=== PATIENT | male | born 1960 | race Caucasian/White ===

== ENCOUNTER 2020-12-10 07:12 | Day surgery (SDC) | payer OTHER, SELFPAY ==
--- NOTE | 2020-12-04 13:02 | HO.ANESPROP2 ---
Documented by User: Lexie Willson 12/04/20 13:06 HPI - Anesthesia Eval Consult details Narrative: 60yo M for Colonoscopy Eliquis for Afib PMFSH Past Medical History Medical History (Updated 12/10/20 @ 08:41 by Susy Santos) Arrhythmia Coagulopathy Diabetes Elevated cholesterol GERD (gastroesophageal reflux disease) HTN (hypertension) Sleep apnea Surgical History Surgical History H/O colonoscopy History of esophagogastroduodenoscopy (EGD) History of hemilaminectomy Hx of elbow surgery Hx of excision of mass Hx of hernia repair Hx of nasal septoplasty Hx of neck surgery Hx of shoulder surgery Hx of tonsillectomy Social History Social History Smoking Status: Never smoker Use of substances other than those prescribed or required for medical reasons: No Are you DNR?: No Advance Directives: No Advance Directives Information Provided: Yes Meds Allergies Allergy/AdvReac Type Severity Reaction Status Date / Time ENVIRONMENTAL Allergy Intermediate RUNNY NOSE Uncoded 04/10/20 14:49 Home Medications Medication Instructions Recorded Confirmed Last Taken Type apixaban [Eliquis] 1 tab PO BID 12/04/20 12/04/20 Unknown History flecainide 1 tab PO Q12H 12/04/20 12/04/20 Unknown History ipratropium bromide 1 spray INTRANASAL BID 12/04/20 12/04/20 Unknown History lisinopril 1 tab PO DAILY 12/04/20 12/04/20 Unknown History losartan 1 tab PO DAILY 12/04/20 12/04/20 Unknown History metformin 1 tab PO BID 12/04/20 12/04/20 Unknown History simvastatin 1 tab PO BEDTIME 12/04/20 12/04/20 Unknown History Exam Exam Date and Time: December 04, 2020 1302 Height,Weight and Vital Signs: Height 6 ft 1 in Narrative Narrative: EKG 05/2020: SR @85 with 1st degree AV block Assessment and Plan Assessment Anesthesia Assessment: Chart Reviewed Documented by User: Susy Santos 12/10/20 08:41 [facility] Past Medical History Medical History (Updated 12/10/20 @ 08:41 by Susy Santos) Arrhythmia Coagulopathy Diabetes Elevated cholesterol GERD (gastroesophageal reflux disease) HTN (hypertension) Sleep apnea Family History Family history of problems with anesthesia: No Surgical History Surgical History H/O colonoscopy History of esophagogastroduodenoscopy (EGD) History of hemilaminectomy Hx of elbow surgery Hx of excision of mass Hx of hernia repair Hx of nasal septoplasty Hx of neck surgery Hx of shoulder surgery Hx of tonsillectomy History of Problems with Anesthesia: No Social History Social History Smoking Status: Never smoker Use of substances other than those prescribed or required for medical reasons: No Are you DNR?: No Advance Directives: No Advance Directives Information Provided: Yes Meds Allergies Allergy/AdvReac Type Severity Reaction Status Date / Time ENVIRONMENTAL Allergy Intermediate RUNNY NOSE Uncoded 04/10/20 14:49 Home Medications Medication Instructions Recorded Confirmed Last Taken Type apixaban [Eliquis] 1 tab PO BID 12/04/20 12/04/20 Unknown History flecainide 1 tab PO Q12H 12/04/20 12/04/20 Unknown History ipratropium bromide 1 spray INTRANASAL BID 12/04/20 12/04/20 Unknown History lisinopril 1 tab PO DAILY 12/04/20 12/04/20 Unknown History losartan 1 tab PO DAILY 12/04/20 12/04/20 Unknown History metformin 1 tab PO BID 12/04/20 12/04/20 Unknown History simvastatin 1 tab PO BEDTIME 12/04/20 12/04/20 Unknown History Exam Height,Weight and Vital Signs: Vital Signs Temp Pulse Resp BP 12/10/20 08:04 97.2 F 82 16 150/88 H Pertinent Lab Results Pertinent Lab Results: Lab Results 12/10/20 Range/Units 07:34 POC Glucose 164 H (60-115) mg/dL Airway Mallampati Class: II TM Dist: >3cm Neck ROM: Full Heart: RRR Lungs: CTAB Assessment and Plan Assessment Anesthesia Assessment: Anesthesia Plan Discussed and Chart Reviewed Final Anesthetic Review NPO: Yes ASA Class: III Final Preanesthetic Review: No Changes in Pt Med Stat, Meds/Allgs Chart Reviewed, Consent Obtained/Reviewed and Anes Risks/Benef Reviewed Patient Risk: Intermediate Procedure Risk: Low Assessment/Block/Sedation in SS: Assess/Block/Sedation-SS Anesthetic Plan Anesthetic Plan: MAC: Disposition: Standard PACU
[2020-12-10 07:37] LABS: Glucose, Whole Blood 164 mg/dL (60-115)
[2020-12-10] MEDS: Sodium Phosphate,Mono-Dibasic 133 ML ENEMA PR (08:00)
[2020-12-10 08:04] VITALS: BP 150/88; PULSE 82; RESP 16; TEMP 36.2; BMI 25.0
[2020-12-10] MEDS: Lactated Ringers 1,000 ML 100 ML IVCONT (08:20)
[2020-12-10 09:15] VITALS: BP 116/72; PULSE 79; RESP 12; TEMP 36.9; O2SAT 99
--- NOTE | 2020-12-10 09:18 | PM.OP ---
Brief Operative Note Date of Service: 12/10/20 Pre-op diagnosis: Screening Post-op diagnosis: other (Diverticulosis) Procedure: Colonoscopy to cecum Surgeon: Kain Lopez Anesthesia: MAC Was an Drawing Kiln Supervisor used for this Procedure?: No Estimated blood loss (mL): 0 Pathology: none sent Condition: stable Disposition: PACU
[2020-12-10 09:30] VITALS: BP 119/78; PULSE 75; RESP 16; TEMP 36.9; O2SAT 100
--- NOTE | 2020-12-10 09:38 | OP_ITS ---
SURGEON: Kain Lopez MD INDICATIONS: The patient presents for evaluation of colorectal cancer screening and personal history of tubular adenoma of the colon. Full consent has been obtained from him for this, including risks of bleeding and perforation. PREOPERATIVE DIAGNOSIS: POSTOPERATIVE DIAGNOSIS: PROCEDURE PERFORMED: Colonoscopy to the cecum. ESTIMATED BLOOD LOSS: COMPLICATIONS: ANESTHESIA: Monitored anesthesia care. ASSISTANTS: SPECIMENS: PREOPERATIVE DIAGNOSES: Colorectal cancer screening and personal history of tubular adenoma of the colon. POSTOPERATIVE DIAGNOSES: Colorectal cancer screening and personal history of tubular adenoma of the colon, sigmoid diverticulosis, and internal hemorrhoids. DESCRIPTION OF PROCEDURE: The patient was placed in the left lateral decubitus position. The digital rectal exam revealed no abnormalities. The Olympus video pediatric colonoscope was entered into the rectum and advanced to the cecum with the assistance of abdominal wall pressure. Once in the cecum, I did visualize normal-appearing cecal pouch with appendiceal orifice and a normal-appearing ileocecal valve. The entire cecum and ileocecal valve appeared normal. There was transillumination of light deep in the right lower quadrant. The scope was slowly withdrawn assessing all mucosal surfaces carefully. Preparation was excellent. I did not visualize any sign of polyps, colitis, nor angiodysplasia. There was a mild amount of sigmoid diverticulosis. In the rectum, scope was retroflexed visualizing internal hemorrhoids, but no other pathology. The rectal mucosa appeared normal. The scope was straightened out and withdrawn from the patient. He tolerated the procedure well and was returned to the recovery area in stable condition. IMPRESSION: 1. Diverticulosis. 2. Internal hemorrhoids. PLAN: I would recommend a repeat colonoscopy in 5 years for further screening. He will otherwise see me on a p.r.n. basis. He was advised to resume his Eliquis today. MD SUPA Powers/AMELIAL / [id number]
== END 2020-12-10 10:26 | disposition home or self-care (01) ==
PROVIDERS: PCP Hospitalist; Visit Provider Internal Medicine
PROC: 0DJD8ZZ Inspection of Lower Intestinal Tract, Via Natural or Artificial Opening Endoscopic (ICD-10-PCS; CPT 45378; principal; 2020-12-10 08:20)
DX: Z12.11 Encounter for screening for malignant neoplasm of colon (principal); Z86.010 Personal history of colon polyps; K57.30 Diverticulosis of large intestine without perforation or abscess without bleeding; K64.8 Other hemorrhoids; I48.92 Unspecified atrial flutter; Z79.01 Long term (current) use of anticoagulants; D68.51 Activated protein C resistance; I10 Essential (primary) hypertension; E11.9 Type 2 diabetes mellitus without complications; G47.33 Obstructive sleep apnea (adult) (pediatric); Z79.84 Long term (current) use of oral hypoglycemic drugs; Z79.899 Other long term (current) drug therapy
CPT/HCPCS: 45378; 82947

== ENCOUNTER 2021-06-25 12:10 | Outpatient (REF) | payer OTHER, SELFPAY ==
--- NOTE | ~2021-06-25 | XR_ITS ---
EXAMINATION: XR SHOULDER, LEFT CLINICAL INFORMATION: Pain COMPARISON: None TECHNIQUE: Three views of the left shoulder. FINDINGS: The bones and soft tissues are normal. No fracture. Glenohumeral and acromioclavicular alignment is anatomic with normal joint space. No abnormal soft tissue calcifications. XR/XR shoulder LT min 2V IMPRESSION: Normal left shoulder.
== END 2021-06-25 12:11 | disposition home or self-care (01) ==
LOC: HO.HOSX 12:10
PROVIDERS: Visit Provider Orthopaedic Surgery
DX: R29.898 Other symptoms and signs involving the musculoskeletal system (principal); M25.512 Pain in left shoulder
CPT/HCPCS: 73030

== ENCOUNTER 2021-07-10 17:50 | Outpatient (REF) | payer OTHER, SELFPAY ==
--- NOTE | ~2021-07-10 | MR_ITS ---
EXAMINATION: MR CERVICAL SPINE WITHOUT CONTRAST CLINICAL INFORMATION: 61-year-old with left shoulder pain radiating to the left arm. COMPARISON: None TECHNIQUE: MRI of the cervical spine was obtained using routine sequences without contrast. FINDINGS: Alignment: The cervical spine is anatomically aligned. No spondylolisthesis or retrolisthesis. Craniocervical Junction/C1-C2 Articulations: Intact and aligned. Visualized Intracranial Structures: Within normal limits. Vertebral Bodies: Normal height. Disc Spaces and Endplates: Rdvv-cl-vqqunnsl disc space height loss is seen throughout the cervical spine between C2-C3 and C7-T1 inclusive, with mild degrees of anterior marginal spondylosis. There is partial ankylosis of the C4-C5 intervertebral disc space. Bone Marrow: No significant marrow-replacing process or bone marrow edema. SPINAL LEVELS: C2-C3: Rtdpdkx-uh-xxsvp paramedian disc osteophyte complex noted with mild flattening of the dural sac asymmetric to the right without cord impingement. There is uncovertebral spurring and facet arthropathy, left more than right, with moderate left-sided neural foraminal stenosis. No canal stenosis. C3-C4: Posterior disc osteophyte complex asymmetric to the right with flattening of the dural sac without cord impingement or significant canal stenosis. Bilateral uncovertebral spurring and facet arthropathy noted with vgwajhux-zp-psjvdt bilateral neural foraminal stenosis, right more than left. C4-C5: Posterior osteophytic ridging asymmetric to the right noted with mild flattening of the dural sac without canal stenosis or cord impingement. Uncovertebral spurring noted bilaterally and mild facet arthrosis with a small left-sided facet joint effusion, with npky-pa-zfrzjhop right and mild left-sided neural foraminal stenosis. C5-C6: Posterior disc osteophyte complex noted with flattening of the dural sac without cord impingement or significant canal stenosis. Uncovertebral spurring and facet arthropathy noted with qctj-bf-zuvcwqeq left and cpetrbtr-up-czacrk right-sided neural foraminal stenosis. C6-C7: Posterolateral disc osteophyte complex bilaterally with bilateral uncovertebral spurring. Moderate flattening of the dural sac asymmetric to the right with mild spinal canal stenosis without cord impingement. Mild facet arthropathy noted with severe bilateral neural foraminal stenosis. C7-T1: Small central disc protrusion noted with mild flattening of the central dural sac without cord impingement. Ligamentum flavum thickening noted without significant central spinal canal stenosis. There is uncovertebral spurring bilaterally and facet arthropathy predominantly on the right with mild right-sided neural foraminal stenosis. T1-T2: There is a bnsmjya-ku-xltiu paramedian disc herniation with flattening of the dural sac asymmetric to the right without cord compression. No significant spinal canal stenosis. No significant neural foraminal stenosis. The cervical and visualized upper thoracic spinal cord is normal in signal intensity throughout, without focal lesion, edema or syrinx. MR/MR cervical spine wo con IMPRESSION: 1. Multilevel cervical DDD and spondylosis with multilevel DJD throughout the cervical spine as described above. 2. Multilevel posterior disc osteophyte complexes with mild spinal canal stenosis at C6-C7. No cord compression. 3. Multilevel DJD with multilevel bilateral bony neural foraminal stenosis as described by level above. 4. Dkcmycl-rl-yhwmx paramedian disc herniation at T1-T2 without cord compression.
== END 2021-07-10 17:51 | disposition home or self-care (01) ==
LOC: HO.MRI 17:50
PROVIDERS: PCP Hospitalist; Visit Provider Orthopaedic Surgery
DX: R29.898 Other symptoms and signs involving the musculoskeletal system (principal)
CPT/HCPCS: 72141

== ENCOUNTER 2021-12-22 12:27 | Outpatient (REF) | payer OTHER, SELFPAY ==
--- NOTE | ~2021-12-22 | XR_ITS ---
EXAMINATION: XR CHEST CLINICAL INFORMATION: Cough. COMPARISON: None TECHNIQUE: 2 views of the chest were obtained. FINDINGS: No significant abnormality is noted involving the heart, lungs, mediastinum, bony thorax or soft tissues. XR/XR chest 2V IMPRESSION: Unremarkable examination. No acute cardiopulmonary process.
== END 2021-12-22 12:28 | disposition home or self-care (01) ==
LOC: HO.HMGCX 12:27
PROVIDERS: Visit Provider Physician Assistant
DX: R05.9 Cough, unspecified (principal)
CPT/HCPCS: 71046

== ENCOUNTER → 2024-05-08 10:21 | Outpatient (REF) | payer BC, SELFPAY ==
--- NOTE | 2024-05-08 10:30 | CA_ITS ---
Acquisition Time: 2024-05-08 10:43:24 Total Exercise Time: 00:02:52 Test Indications: AFIB, SOB Medications: SEE H Protocol: SURINDER Max HR: 073 BPM 46% of Pred: 156 BPM Max BP: 168/086 mmHG Max Work Load: 4.6 METS Exercise stress test with exercise 2 min 52 sec of Surinder protocol, achieving 44% MPHR ( he took Metoprolol this am), with moderate shortness of breath, no chest discomfort, with isolated PVC, with drop in BP during exercise ( BP just prior to exercise 144/60 followed by BP 120/70 after 2 min 30 sec of walking, then 164/84 in early recovery - confirmed with MA, easily audible), with baseline EKG showing scooping ST segements inferiorly and V4-V6. EKGs with low level exercise show ST depression in those leads, with improveement back to baseline in recovery - Nondiagnostic for ischemia due to baseline abnormality. Test abnormal with poor exercise tolerance and drop in BP with walking. Case reviewed with Dr Kulkarni. Will move up his cardiology appt - Pt will be seen this week. Pt informed of test findings. Referred By: Kain Rivera Overread By: STANTON POZO
--- NOTE | 2024-05-08 10:31 | HM_ITS ---
* Total monitoring time 2 days. * Underlying rhythm is atrial fibrillation with an average rate of 57/Min. * Rare ventricular ectopy. * No significant pauses or high-grade AV blocks. * No patient markers. * Diary not submitted. MTDD
== END ==
LOC: HO.CARD 10:21
PROVIDERS: PCP Family Medicine; Visit Provider Family Medicine
DX: I48.0 Paroxysmal atrial fibrillation (principal); R06.00 Dyspnea, unspecified
CPT/HCPCS: 93017; 93225

== ENCOUNTER → 2024-05-08 10:30 | Outpatient (BNV) | payer BC, SELFPAY | PROVIDERS: PCP Family Medicine; Visit Provider Nurse Practitioner Family | DX: I48.91 Unspecified atrial fibrillation (principal) | CPT/HCPCS: 93016; 93018; 93227 ==

== ENCOUNTER 2024-05-11 12:59 | Outpatient (AMB) | payer BC, SELFPAY ==
[2024-05-11 13:04] VITALS: BP 170/66; PULSE 66; BMI 26.3
--- NOTE | 2024-05-11 13:04 | MHC.OFFVIS ---
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 He states that in the last few months, he has been feeling short of breath with any activity. Even mild exertion makes him short of breath. No clear-cut angina. No known coronary disease or myocardial infarction or cardiomyopathy. Few days back, he came for a stress test. He was able to do just stage I of Sarmad protocol and had shortness of breath. There was decrease in blood pressure with exercise with some EKG changes and hence he was referred for further evaluation. Otherwise, there is a history of paroxysmal atrial fibrillation. He has been on flecainide in the past and has previously seen [facility] but many years ago. [facility] Medical History (Updated 05/11/24 @ 13:50 by Favio Kulkarni MD) Arrhythmia Coagulopathy Sleep apnea Diabetes GERD (gastroesophageal reflux disease) Elevated cholesterol HTN (hypertension) Surgical History Hx of excision of mass Hx of neck surgery Hx of tonsillectomy History of hemilaminectomy Hx of hernia repair Hx of shoulder surgery Hx of elbow surgery Hx of nasal septoplasty History of esophagogastroduodenoscopy (EGD) H/O colonoscopy Family History (Updated 05/11/24 @ 13:16 by Francine Davila CMA) Mother Heart problem Father Heart problem Alzheimer disease Social History (Updated 05/11/24 @ 13:16 by Francine Davila CMA) Alcohol intake: current Alcohol intake frequency: holidays/special occasions only Patient Tobacco Use Status: Never used Tobacco Review of Systems Const Denies chills, Denies fatigue, Denies fever(s), Denies weight gain and Denies weight loss ENT Denies dizziness Card Denies chest pain, Denies leg edema, Denies lightheadedness, Denies palpitations, Reports dyspnea on exertion, Denies orthopnea and Denies other Resp Denies cough and Reports dyspnea on exertion GI Denies hematochezia and Denies change in stool character Musc Denies abnormal gait, Denies muscle weakness, Denies numbness, Denies radiating pain into limb and Denies tingling Neuro Denies abnormal gait, Denies dizziness, Denies numbness and Denies tingling Endo Denies fatigue and Denies palpitations Physical Exam Vital Signs: Last Vital Signs Pulse 66 05/11/24 13:04 BP 170/66 H 05/11/24 13:04 BMI result Body Mass Index 26.3 Const General: comfortable and no acute distress Orientation/consciousness: patient oriented x3 HEENT Other: Unremarkable Head: Yes normal to inspection Neck Neck: Yes normal visual inspection Chest Chest palpation & inspection: normal inspection of the chest Resp Auscultation: clear to auscultation bilaterally Cardio Palpation: normal PMI Heart sounds: S1 normal heart sound present, S2 normal heart sound present, no gallops, no murmurs and no rubs GI Palpation (GI): Soft to palpation Back/Spine/Pelvis Other: unremarkable Skin General skin exam: no rashes or lesions noted Neuro General: patient oriented x3 Extrem General: Yes normal to inspection Psych Mental Status: mental status grossly normal Assessment & Plan Assessment & Plan (1) Shortness of breath on exertion: Code(s): R06.02 - Shortness of breath Category: Medical (2) Abnormal stress ECG with treadmill: Code(s): R94.39 - Abnormal result of other cardiovascular function study Category: Medical (3) Diabetes: Comment: type 2-dx ~2006 Code(s): E11.9 - Type 2 diabetes mellitus without complications Category: Medical (4) HTN (hypertension): Code(s): I10 - Essential (primary) hypertension Category: Medical Plan Per echocardiogram at [facility] from , LVEF 55-60%; mild LVH; diastolic dysfunction with elevated filling pressures. Also mention of atrial fibrillation/flutter with controlled rate during the study. In the EKG from [facility], February-probable sinus rhythm with a long [place] and mild ST depression somewhat diffusely. In the stress test, he exercised only for Sarmad stage I and reached 4.6 Mets; reached 44% of target heart rate with shortness of breath and decrease in blood pressure with ST depression. Overall, shortness of breath could be multifactorial. His blood pressure is clearly elevated and that may play a role. Unclear if he truly has underlying coronary disease or if it is all just diastolic dysfunction from hypertension. Additionally, per echocardiogram, there is mention of atrial fibrillation/flutter and that might also play a role. EKGs somewhat difficult to interpret as the [place] is quite prolonged. We will proceed with a diagnostic catheterization for further assessment of ischemic heart disease. Advised patient to check home blood pressures. Based on that, may need additional medications. He seems to have baseline renal dysfunction also has elevated potassium and hence may need to choose another agent like amlodipine. Chronotropic incompetence may also cause shortness of breath and in that case he may need a different agent. Also, with prolonged [place] beta-blockers would be an issue. We will start with diagnostic catheterization and then we will start addressing all the other above possibilities that will contribute to shortness of breath. Patient agrees with plan. Orders: Orders Cardiac Cath LT Diagnostic Today I25.10 - Atherosclerotic heart disease of [place] coronary artery without angina pectoris, R06.02 - Shortness of breath Coding Level of Care Code New Pt Level 5 (42268) Diagnoses Shortness of breath on exertion R06.02 Abnormal stress ECG with treadmill R94.39 Diabetes E11.9 HTN (hypertension) I10
== END 2024-05-11 13:34 | disposition home or self-care (01) ==
PROVIDERS: PCP Family Medicine; Visit Provider Internal Medicine
DX: I10 Essential (primary) hypertension (principal); R06.02 Shortness of breath; R94.39 Abnormal result of other cardiovascular function study; E11.8 Type 2 diabetes mellitus with unspecified complications
CPT/HCPCS: 99214

== ENCOUNTER 2024-05-11 12:59 | Outpatient (REF) | payer BC, SELFPAY ==
[2024-05-11 14:23] LABS: MANUAL DIFF FLAG NO
[2024-05-11 14:54] LABS: Basophils Absolute Auto 0.1 X10*3/uL (0.0-0.2); Basophils Percent Auto 1.2 % (0-2); Eosinophils Absolute Auto 0.1 X10*3/uL (0.0-0.4); Eosinophils Percent Auto 2.3 % (0-4); Hematocrit 36.2 % (42.0-52.0); Hemoglobin 12.1 g/dl (14.0-18.0); Imm Gran Abs Auto 0.02 X10*3/uL (0.00-0.03); Imm Gran Pct Auto 0.4 % (0.0-0.4); Lymphocytes Absolute Auto 1.7 X10*3/uL (1.2-4.9); Mean Corpuscular HGB Conc 33.4 g/dl (31.0-36.0); Mean Corpuscular Hemoglobin 30.9 pg (27.0-33.0); Mean Corpuscular Volume 92.3 fL (80.0-98.0); Monocytes Absolute Auto 0.6 X10*3/uL (0.1-1.2); Monocytes Percent Auto 11.3 % (2-11); Neutrophils Absolute Auto 2.4 x10*3/uL (2.0-8.3); Neutrophils Percent Auto 49.8 % (45-73); Platelet Count 182 X10*3/uL (160-400); Red Blood Count 3.92 X10*6/uL (4.60-5.80); Red Cell Distribution Width 14.4 % (11.0-16.0); White Blood Count 4.9 X10*3/uL (4.8-10.8)
[2024-05-11 14:58] LABS: INTERNATIONAL NORM RATIO 1.3 (0.9-1.1); Prothrombin Time 15.5 SEC (10.9-12.4)
[2024-05-11 15:15] LABS: Anion Gap 12 (12-20); Blood Urea Nitrogen 24 mg/dL (9-16); Calcium 9.8 mg/dL (8.4-10.2); Carbon Dioxide 29 mmol/L (22-29); Chloride 104 mmol/L (96-108); Estimated Glomerular Filt Rate 57; Glucose Random 189 mg/dL (60-115); Potassium 4.5 mmol/L (3.3-5.1); Sodium 140 mmol/L (135-145)
== END 2024-05-11 13:00 | disposition home or self-care (01) ==
LOC: HO.LAB 12:59
PROVIDERS: Absent Provider Nurse Practitioner Family; PCP Family Medicine; Visit Provider Internal Medicine
DX: R94.39 Abnormal result of other cardiovascular function study (principal); R06.02 Shortness of breath
CPT/HCPCS: 36415; 80048; 85025; 85610

== ENCOUNTER → 2024-05-29 23:59 | Outpatient (BNV) | payer BC, SELFPAY | PROVIDERS: PCP Family Medicine; Visit Provider Internal Medicine Cardiovascular Disease | DX: I50.30 Unspecified diastolic (congestive) heart failure (principal); R93.1 Abnormal findings on diagnostic imaging of heart and coronary circulation | CPT/HCPCS: 93458; 93571; 99152 ==

== ENCOUNTER 2024-06-20 14:34 | Outpatient (AMB) | payer BC, SELFPAY ==
[2024-06-20 14:38] VITALS: BP 160/62; PULSE 66; BMI 24.7
--- NOTE | 2024-06-20 14:38 | MHC.OFFVIS ---
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 Recently seen in consultation regarding shortness of breath. Over the last several months, any form of activity made short of breath. Even with mild exertion, he feels that weight. He came for a stress test where he had shortness of breath even at stage I of Sarmad protocol. There was also concern for blood pressure decrease with exercise. He underwent a diagnostic catheterization but no clear findings to explain his symptoms. Otherwise, there is a history of paroxysmal atrial fibrillation and he has been on flecainide in the past. Has seen [facility] as well. His blood pressure was also high and suspect that may play some role in symptoms. We started amlodipine last time. Overall, feels just about the same as before. [facility] Medical History (Updated 06/20/24 @ 16:49 by Favio Kulkarni MD) Arrhythmia Coagulopathy Sleep apnea Diabetes GERD (gastroesophageal reflux disease) Elevated cholesterol HTN (hypertension) Surgical History Hx of cardiac cath Hx of excision of mass Hx of neck surgery Hx of tonsillectomy History of hemilaminectomy Hx of hernia repair Hx of shoulder surgery Hx of elbow surgery Hx of nasal septoplasty History of esophagogastroduodenoscopy (EGD) H/O colonoscopy Family History Mother Heart problem Father Heart problem Alzheimer disease Social History Alcohol intake: current Alcohol intake frequency: holidays/special occasions only Patient Tobacco Use Status: Never used Tobacco Review of Systems Const Denies chills, Denies fatigue, Denies fever(s), Denies weight gain and Denies weight loss ENT Denies dizziness Card Denies chest pain, Denies leg edema, Denies lightheadedness, Reports palpitations, Denies dyspnea on exertion, Denies orthopnea and Denies other Resp Denies cough and Denies dyspnea on exertion GI Denies hematochezia and Denies change in stool character Musc Denies abnormal gait, Denies muscle weakness, Denies numbness, Denies radiating pain into limb and Denies tingling Neuro Denies abnormal gait, Denies dizziness, Denies numbness and Denies tingling Endo Denies fatigue and Reports palpitations Physical Exam Vital Signs: Last Vital Signs Pulse 66 06/20/24 14:38 BP 160/62 H 06/20/24 14:38 BMI result Body Mass Index 24.7 Const General: comfortable and no acute distress Orientation/consciousness: patient oriented x3 HEENT Other: Unremarkable Head: Yes normal to inspection Neck Neck: Yes normal visual inspection Chest Chest palpation & inspection: normal inspection of the chest Resp Auscultation: clear to auscultation bilaterally Cardio Palpation: normal PMI Heart sounds: S1 normal heart sound present, S2 normal heart sound present, no gallops, no murmurs and no rubs GI Palpation (GI): Soft to palpation Back/Spine/Pelvis Other: unremarkable Skin General skin exam: no rashes or lesions noted Neuro General: patient oriented x3 Extrem General: Yes normal to inspection Psych Mental Status: mental status grossly normal Office Procedures EKG Details: EKG has some baseline artifact. I am not clear with the underlying rhythm. It could be atrial fibrillation with block versus sinus with a long DE, difficult to say. Rhythm itself seems regular but cannot delineate a P-wave clearly. [id number], Complete Assessment & Plan Assessment & Plan (1) Shortness of breath on exertion: Code(s): R06.02 - Shortness of breath Category: Medical (2) Abnormal stress ECG with treadmill: Code(s): R94.39 - Abnormal result of other cardiovascular function study Category: Medical (3) Paroxysmal atrial fibrillation: Code(s): I48.0 - Paroxysmal atrial fibrillation Category: Medical (4) HTN (hypertension): Code(s): I10 - Essential (primary) hypertension Category: Medical Plan Cardiac studies reviewed. Echocardiogram at [facility] from 02/2024- LVEF 55-60%; mild LVH; diastolic dysfunction with elevated filling pressures. Also mention of atrial fibrillation/flutter with controlled rate during the study. In the EKG from [facility], February-probable sinus rhythm with a long DE and mild ST depression somewhat diffusely vs atrial flutter?? In the stress test, he exercised only for Sarmad stage I and reached 4.6 Mets; reached 44% of target heart rate with shortness of breath and decrease in blood pressure with ST depression. Again rhythm during the study is not very clear. In the cardiac catheterization, mid LAD 65% stenosis; normal IFR. Overall, shortness of breath, possibly from atrial flutter/fibrillation with some underlying AV bryce conduction system disease causing chronotropic incompetence; uncontrolled hypertension; moderate coronary disease. Out of this, atrial arrhythmias may play the main role with hypertension being the secondary cause. He is off metoprolol and his heart rate has not improved at all and hence most likely there is definitive conduction system disease. We will refer him to EP for evaluation. May benefit from permanent pacemaker implantation +/-ablation. We will hold off on cardioversion as I am not clear how his rhythm would be post cardioversion and if he will be able to maintain sinus or will go into a escape rhythm. With regard to blood pressure, we will go up on the amlodipine to 10 mg daily. Add chlorthalidone as well. Check labs few weeks after the change. He has history of CKD as well as elevated potassium and hence will need to be cautious. With regard to coronary disease, we can get some baseline lipids from his own PCP. Subsequently, plan for statins. Total time spent including review of data, counseling, documentation, coordination of care-47 minutes. Orders: Orders Basic Metabolic Panel 2 Weeks R06.02 - Shortness of breath Referrals Cardiac Electrophysiology Referral I48.0 - Paroxysmal atrial fibrillation Medications: New amlodipine 10 mg PO DAILY 90 tabs 3RF chlorthalidone 25 mg PO DAILY 90 tabs 1RF Discontinued amlodipine Discontinued Reason: Doctor's Order 5 mg PO DAILY 90 tabs 3RF Coding Level of Care Code Est Pt Level 5 (04578) Diagnoses Shortness of breath on exertion R06.02 Abnormal stress ECG with treadmill R94.39 Paroxysmal atrial fibrillation I48.0 HTN (hypertension) I10 CPT Codes EKG - CPT: 33254-[id number], Complete ([id number])
== END 2024-06-20 15:13 | disposition home or self-care (01) ==
PROVIDERS: PCP Family Medicine; Visit Provider Internal Medicine
DX: R06.02 Shortness of breath (principal); R94.31 Abnormal electrocardiogram [ECG] [EKG]; I48.0 Paroxysmal atrial fibrillation; I10 Essential (primary) hypertension; I44.0 Atrioventricular block, first degree
CPT/HCPCS: 93010; 99215

== ENCOUNTER → 2024-06-20 14:34 | Outpatient (BNVA) | payer BC, SELFPAY | PROVIDERS: PCP Family Medicine; Visit Provider Internal Medicine | DX: R06.02 Shortness of breath (principal); R94.39 Abnormal result of other cardiovascular function study; I48.0 Paroxysmal atrial fibrillation; I10 Essential (primary) hypertension; Z79.899 Other long term (current) drug therapy | CPT/HCPCS: 93005 ==

== ENCOUNTER 2024-08-07 15:26 | Outpatient (REF) | payer BC, SELFPAY ==
[2024-08-07 17:02] LABS: Anion Gap 12 (12-20); Blood Urea Nitrogen 28 mg/dL (9-16); Calcium 10.6 mg/dL (8.4-10.2); Carbon Dioxide 30 mmol/L (22-29); Chloride 99 mmol/L (96-108); Estimated Glomerular Filt Rate 47; Glucose Random 232 mg/dL (60-115); Potassium 4.1 mmol/L (3.3-5.1); Sodium 137 mmol/L (135-145)
== END 2024-08-07 15:27 | disposition home or self-care (01) ==
LOC: HO.LAB 15:26
PROVIDERS: PCP Family Medicine; Visit Provider Internal Medicine
DX: R06.02 Shortness of breath (principal)
CPT/HCPCS: 36415; 80048

== ENCOUNTER 2024-08-24 13:37 | Outpatient (AMB) | payer BC, SELFPAY ==
--- NOTE | 2024-08-24 13:38 | MHC.OFFVIS ---
Vital Signs 08/24/24 13:39 Height 6 ft 1 in Weight 192 lb 10.944 oz BMI 25.4 BP 156/56 H Blood Pressure Location Lt brachial Position Sitting Pulse 67 Intake Visit Reasons: Edema need EKG Is Analyst Required: No Accompanied by: Self / Same As Patient Allergies ENVIRONMENTAL Allergy (Intermediate, Uncoded 12/22/21 12:10) RUNNY NOSE Medication List - Last Reconciled 08/24/24 by Favio Kulkarni MD amlodipine 10 mg PO DAILY aspirin 81 mg PO DAILY cinnamon bark (Cinnamon) 500 mg PO DAILY furosemide 20 mg PO DAILY PRN ipratropium bromide 1 spray intranasal BID mecobalamin (vitamin B12) mcg PO metformin 1 tab PO BID omeprazole 20 mg PO DAILY rivaroxaban (Xarelto) 20 mg PO DAILY HPI Comments Details: Ad returns for follow-up. Recently seen in consultation regarding shortness of breath. Over the last several months, any form of activity made short of breath. He came for a stress test where he had shortness of breath even at stage I of Sarmad protocol. There was also concern for blood pressure decrease with exercise. He underwent a diagnostic catheterization but no clear findings to explain his symptoms. Otherwise, there is a history of paroxysmal atrial fibrillation and he has been on flecainide in the past. Has seen [facility] EP as well. His blood pressure was also high and suspect that may play some role in symptoms. We started amlodipine last time. He is still awaiting EP appointment, scheduled for August. He sometimes, he feels that he is retaining fluid and is taking Lasix as needed. That is helping a lot. Breathing is just about the same as before. [facility] Medical History (Updated 06/20/24 @ 16:49 by Favio Kulkarni MD) Arrhythmia Coagulopathy Sleep apnea Diabetes GERD (gastroesophageal reflux disease) Elevated cholesterol HTN (hypertension) Surgical History Hx of cardiac cath Hx of excision of mass Hx of neck surgery Hx of tonsillectomy History of hemilaminectomy Hx of hernia repair Hx of shoulder surgery Hx of elbow surgery Hx of nasal septoplasty History of esophagogastroduodenoscopy (EGD) H/O colonoscopy Family History Mother Heart problem Father Heart problem Alzheimer disease Social History Alcohol intake: current Alcohol intake frequency: holidays/special occasions only Patient Tobacco Use Status: Never used Tobacco Review of Systems Const Denies chills, Reports fatigue, Denies fever(s), Denies weight gain and Denies weight loss ENT Denies dizziness Card Denies chest pain, Reports leg edema, Denies lightheadedness, Denies palpitations, Reports dyspnea on exertion, Denies orthopnea and Denies other Resp Denies cough and Reports dyspnea on exertion GI Denies hematochezia and Denies change in stool character Musc Denies abnormal gait, Denies muscle weakness, Denies numbness, Denies radiating pain into limb and Denies tingling Neuro Denies abnormal gait, Denies dizziness, Denies numbness and Denies tingling Endo Reports fatigue and Denies palpitations Physical Exam Vital Signs: Last Vital Signs Pulse 67 08/24/24 13:39 BP 156/56 H 08/24/24 13:39 BMI result Body Mass Index 25.4 Const General: comfortable and no acute distress Orientation/consciousness: patient oriented x3 HEENT Other: Unremarkable Head: Yes normal to inspection Neck Neck: Yes normal visual inspection Chest Chest palpation & inspection: normal inspection of the chest Resp Auscultation: clear to auscultation bilaterally Cardio Palpation: normal PMI Heart sounds: S1 normal heart sound present, S2 normal heart sound present, no gallops, no murmurs and no rubs GI Palpation (GI): Soft to palpation Back/Spine/Pelvis Other: unremarkable Skin General skin exam: no rashes or lesions noted Neuro General: patient oriented x3 Extrem General: Yes normal to inspection Psych Mental Status: mental status grossly normal Office Procedures EKG Details: EKG with either atrial flutter or fibrillation at a rate of 67/Min. Suspect some degree of heart block but can not clearly clarify as to the type. [id number], Complete Assessment & Plan Assessment & Plan (1) Shortness of breath on exertion: Code(s): R06.02 - Shortness of breath Category: Medical (2) Abnormal stress ECG with treadmill: Code(s): R94.39 - Abnormal result of other cardiovascular function study Category: Medical (3) Paroxysmal atrial fibrillation: Code(s): I48.0 - Paroxysmal atrial fibrillation Category: Medical (4) HTN (hypertension): Code(s): I10 - Essential (primary) hypertension Category: Medical Plan Cardiac studies reviewed. Echocardiogram at [facility] from 02/2024- LVEF 55-60%; mild LVH; diastolic dysfunction with elevated filling pressures. Also mention of atrial fibrillation/flutter with controlled rate during the study. In the EKG from [facility], February-probable sinus rhythm with a long LA and mild ST depression somewhat diffusely vs atrial flutter?? In the stress test, he exercised only for Sarmad stage I and reached 4.6 Mets; reached 44% of target heart rate with shortness of breath and decrease in blood pressure with ST depression. Again rhythm during the study is not very clear. In the cardiac catheterization, mid LAD 65% stenosis; normal IFR. Overall, shortness of breath, possibly from atrial flutter/fibrillation with some underlying AV bryce conduction system disease causing chronotropic incompetence; hypertension; moderate coronary disease. Among this, atrial arrhythmia as well as chronotropic incompetence most likely the main etiology. He is off metoprolol and his heart rate has not improved at all and hence most likely there is definitive conduction system disease. Discussed with yesterday regarding this patient. Overall plan not entirely clear as yet. Probably start with a dual-chamber permanent pacemaker. Then at some point cardioversion followed by ablation. Exact timing and sequence to be decided. Before cardioversion, ideally, he should have some backup pacing as I am not clear what the escape rhythm is going to be. He is on Xarelto and may continue that. With regard to the blood pressure, continue amlodipine. We started chlorthalidone but the creatinine went up and that has been stopped. He also has a history of high potassium and may not be suitable for JOANA inhibitors ARB. Post pacemaker, probably start carvedilol. With regard to symptoms like fluid retention extra, okay to use Lasix as necessary but main solution is going to be addressing the EP issues. With regard to coronary disease, we will need to obtain his last lipids at some point and then consider statins. To be done in due course. We will follow up in a few weeks' time. Coding Level of Care Code Est Pt Level 4 (29136) Diagnoses Shortness of breath on exertion R06.02 Abnormal stress ECG with treadmill R94.39 Paroxysmal atrial fibrillation I48.0 HTN (hypertension) I10 CPT Codes EKG - CPT: 64780-[id number], Complete ([id number])
[2024-08-24 13:39] VITALS: BP 156/56; PULSE 67; BMI 25.4
--- OUTSIDE RECORDS SUMMARY | 2024-08-24 13:44 | XMS_ITS | Clinical Summary ---
Author Organization [facility] Address [address] [place] [address] Care Team Providers Care Client Account Manager Name Role Phone Juancarlos Núñez MD Primary Care Provider [phone] Allergies No known active allergies Medications Medication Sig Dispensed Refills Start Date End Date Status ipratropium (ATROVENT) 0.06 % nasal spray 1 spray 2 (two) times a day. 3 11/27/2018 Active lisinopril (PRINIVIL,ZeSTRIL) 5 MG tablet Take 5 mg by mouth daily. 10/30/2018 Active metFORMIN (GLUCOPHAGE) 1000 MG tablet Take 1,000 mg by mouth 2 (two) times a day with meals. 10/30/2018 Active simvastatin (ZOCOR) 40 MG tablet Take 40 mg by mouth nightly. 10/30/2018 Active CINNAMON PO Take 2 tablets by mouth nightly. Active aspirin enteric coated (ECOTRIN LOW STRENGTH) 81 MG EC tablet Take 81 mg by mouth daily. Active OMEprazole (PriLOSEC) 20 MG capsule Take 20 mg by mouth every morning before breakfast. 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 Diabetes mellitus 12/14/2018 Hypertension 12/14/2018 Gastric reflux 12/14/2018 Other spondylosis with radiculopathy, cervical r egion 12/14/2018 Immunizations Name Administration Dates Next Due Influenza Inactivated/Split Preservative Free IM 05/11/2019() Social History Tobacco Use Types Packs/Day Years Used Date Smoking Tobacco: Never Smokeless Tobacco: Never Alcohol Use Standard Drinks/Week Comments Yes 0 (1 standard drink = 0.6 oz pur e alcohol) approx 4-5x/week/ 12-24 drinks Sex and Gender Information Value Date Recorded Sex Assigned at Not on file Gender Identity Not on file Sexual Orientation Not on file Last Filed Vital Signs Vital Sign Reading Time Taken Comments Blood Pressure 130/74 05/22/2019 9:33 AM EDT Pulse 80 05/22/2019 9:33 AM EDT Temperature 36.6 ??C (97.9 ??F) 05/11/2019 10:38 AM E DT Respiratory Rate 16 05/11/2019 10:38 AM EDT Oxygen Saturation 98% 05/11/2019 10:38 AM EDT Inhaled Oxygen Concentration - - Weight 88 kg (194 lb) 05/22/2019 9:33 AM EDT Height 185.4 cm (6' 1 ) 05/22/2019 9:33 AM EDT Body Mass Index 25.6 05/22/2019 9:33 AM EDT Plan of Treatment Health Maintenance Due Date Last Done Comments Hepatitis C Virus Screening 1960 Pneumococcal Vaccine: Pediatric (0-5 Years) and At-Risk Patients (6 to 49 Years) (1 of 2 - PCV) 01/01/1966 Foot Exam 01/01/1970 Lipid Panel 01/01/1970 Ophthalmology Exam 01/01/1970 HIV Screening 01/01/1973 Microalbumin/Creatinine Rati o Urine 01/01/1978 DTaP/Tdap/Td Vaccines (1 - Tdap) 01/01/1979 Pneumococcal Vaccines 50+ (1 of 2 - PCV) 01/01/1979 Colonoscopy 01/01/2005 Zoster (Shingles) Vaccine (1 of 2) 01/01/2010 Hemoglobin A1C 11/10/2019 05/11/2019 Creatinine with GFR 02/10/2020 02/09/2019, 02/08/2019 Influenza Vaccine 02/23/2024 COVID-19 Vaccine (1 - 2023-2 5 season) 2024 RSV Vaccine 60 years and old er and Patients (1 - 1-dose 75+ series) 01/01/2035 Hepatitis B Vaccines Aged Out No long er eligible based on patient's age to complete this topic Medical Devices Implanted Type Area Sap Sd Analyst Device Identifier Shelf Expiration Date Model / Serial / Lot [id number] Patch Dural 3x1in Drmtrx-Onlay Plus Collagen Rgnrt Membrane - [id number] Implanted:Qty: 1 on 05/10/2019 by Sona Chapa MD at [facility] Tissue Right: Spine Lumbar [employer] - [employer] 01/22/2020 [id number] / / [id number] Procedures Procedure Name Priority Date/Time Associated Diagnosis Comments HEMOGLOBIN A1C WITH ESTIMATED AVERAGE GLUCOSE Routine 05/11/2019 4:41 AM EDT BASIC METABOLIC PANEL Routine 02/09/2019 5:42 AM EDT from Last 3 Months or Most Recently Relevant to Health Maintenance Results * (ABNORMAL) Hemoglobin A1c with Estimated Average Glucose (05/11/2019 4:41 AM EDT) Hemoglobin A1C 8.0(H) <5.7 % [facility] Comment: A1c% ? Interpretation 5.7 - 6.0 ?Increase risk of diabetes 6.1 - 6.4 ?Higher risk of diabetes > or = 6.5 ?? Consistent with diabetes Diabetes Care, 33(Supp 1):S1-S61, 2010 Estimated Average Glucose 183 mg/dL [facility] Blood specimen (specimen) Blood specimen / Unknown 05/11/2019 4:41 AM EDT 05/11/2019 5:07 AM EDT Vidya GARCIA LAB BLOOD ORDERABLES [facility] * (ABNORMAL) Basic Metabolic Panel (02/09/2019 5:42 AM EDT) Glucose 178(H) 65 - 99 mg/dL [facility] Comment:Fasting: <100 mg/dL, Non-Fasting: <200 mg/dL (ADA 2005) Blood Urea Nitrogen (BUN) 13 8 - 21 mg/dL [facility] Creatinine 1.0 0.5 - 1.3 mg/dL [facility] eGFR >60 >59 [facility] Comment:MDRD in mL/min/1.73 sq meters. GFR - >60 >59 [facility] Comment:MDRD in mL/min/1.73 sq meters. Sodium 133(L) 136 - 145 mmol/L [facility] Potassium 3.8 3.4 - 5.3 mmol/L [facility] Chloride 94(L) 98 - 107 mmol/L [facility] CO2 24 22 - 33 mmol/L [facility] Anion Gap 15 7 - 17 [facility] Calcium 8.6(L) 8.7 - 10.5 mg/dL [facility] BUN/Creatinine Ratio 13 10.0 - 25.0 Ratio [facility] Blood specimen (specimen) Blood specimen / Unknown 02/09/2019 5:42 AM EDT 02/09/2019 5:56 AM EDT Laisha Pressley PA-C LAB BLOOD ORD ERABLES [facility] from Last 3 Months or Most Recently Relevant to Health Maintenance Advance Directives * Full Code (Latest Code Status on File) Date Activated Date Inactivated Comments 05/10/2019 1:43 PM * Full Code Date Activated Date Inactivated Comments 02/08/2019 12:08 PM 05/10/2019 9:10 AM Care Teams Client Account Manager Relationship Specialty Start Date End Date Juancarlos Núñez MD [address] [place] [id number] PCP - General Internal Medicine 01/17/19
--- OUTSIDE RECORDS SUMMARY | 2024-08-24 13:44 | XMS_ITS | Encounter Summary ---
Author Organization [facility] Address [address] [place] [address] Care Team Providers Care Information Systems Analyst Name Role Phone Pcp, No Primary Care Provider Juancarlos Garcia MD Primary Care Provider [phone] Encounter Details Date Type Department Care Team (Late st Contact Info) Description 12/14/2018 Scanned Document [facility] [address] [facility] [address] [place] [address] Social History Tobacco Use Types Packs/Day Years Used Date Smoking Tobacco: Never Smokeless Tobacco: Never Alcohol Use Standard Drinks/Week Comments Yes 0 (1 standard drink = 0.6 oz pur e alcohol) Sex and Gender Information Value Date Recorded Sex Assigned at Not on file Gender Identity Not on file Sexual Orientation Not on file documented as of this encounter Plan of Treatment Not on file documented as of this encounter Visit Diagnoses Not on filedocumented in this encounter Care Teams Information Systems Analyst Relationship Specialty Start Date End Date Pcp, No [address] [place] [address] PCP - General 12/04/18 01/16/19 Juancarlos Núñez MD [address] [place] [id number] PCP - General Internal Medicine 01/17/19 documented as of this encounter
--- OUTSIDE RECORDS SUMMARY | 2024-08-24 13:44 | XMS_ITS | Encounter Summary ---
Author Organization [facility] Address [address] [place] [address] Care Team Providers Care Athletic Team Physician Name Role Phone Pcp, No Primary Care Provider Juancarlos Garcia MD Primary Care Provider [phone] Encounter Details Date Type Department Care Team (Late st Contact Info) Description 12/14/2018 Scanned Document [facility] [place] [address] [facility] [address] [place] [address] Sona Chapa MD [address] [facility] [address] [place] [address] Social History Tobacco Use Types Packs/Day Years [...] on filedocumented in this encounter Care Teams Athletic Team Physician Relationship Specialty Start Date End Date Pcp, No [address] [place] [address] PCP - General 12/04/18 01/16/19 Juancarlos Núñez MD [address] [place] [address] [address] [place] [address] PCP - General Internal Medicine 01/17/19 documented as of this encounter
== END 2024-08-24 14:03 | disposition home or self-care (01) ==
PROVIDERS: PCP Family Medicine; Visit Provider Internal Medicine
DX: R06.02 Shortness of breath (principal); R94.39 Abnormal result of other cardiovascular function study; I48.0 Paroxysmal atrial fibrillation; I10 Essential (primary) hypertension
CPT/HCPCS: 93010; 99214

== ENCOUNTER → 2024-08-24 13:37 | Outpatient (BNVA) | payer BC, SELFPAY | PROVIDERS: PCP Family Medicine; Visit Provider Internal Medicine | DX: R06.02 Shortness of breath (principal); R94.39 Abnormal result of other cardiovascular function study; I48.0 Paroxysmal atrial fibrillation; I10 Essential (primary) hypertension; Z79.01 Long term (current) use of anticoagulants; Z79.899 Other long term (current) drug therapy | CPT/HCPCS: 93005 ==

== ENCOUNTER 2024-10-17 13:38 | Outpatient (AMB) | payer BC, SELFPAY ==
[2024-10-17 13:40] VITALS: BP 140/78; PULSE 72; BMI 25.3
--- NOTE | 2024-10-17 13:40 | MHC.OFFVIS ---
Vital Signs 10/17/24 13:40 Height 6 ft 1 in Weight 191 lb 12.835 oz BMI 25.3 BP 140/78 H Blood Pressure Location Lt brachial Position Sitting Pulse 72 Pulse Source Pulse Oximeter Intake Visit Reasons: 2m follow up Allergies ENVIRONMENTAL Allergy (Intermediate, Uncoded 12/22/21 12:10) RUNNY NOSE Medication List - Last Reconciled 10/17/24 by Favio Kulkarni MD amlodipine 10 mg PO DAILY aspirin 81 mg PO DAILY cinnamon bark (Cinnamon) 500 mg PO DAILY furosemide 20 mg PO DAILY PRN ipratropium bromide 1 spray intranasal BID mecobalamin (vitamin B12) mcg PO metformin 1 tab PO BID omeprazole 20 mg PO DAILY rivaroxaban (Xarelto) 20 mg PO DAILY HPI Comments Details: Ad returns for follow-up. To recall, he was originally seen in consultation regarding shortness of breath. Over the last several months, any form of activity made short of breath. He came for a stress test where he had shortness of breath even at stage I of Sarmad protocol. There was also concern for blood pressure decrease with exercise. He underwent a diagnostic catheterization but no clear findings to explain his symptoms. Otherwise, there is a history of paroxysmal atrial fibrillation and he has been on flecainide in the past. Also started amlodipine for high blood pressure. Has seen EP recently and is scheduled for ablation +/-pacemaker. [facility] Medical History (Updated 10/17/24 @ 15:25 by Favio Kulkarni MD) Arrhythmia Coagulopathy Sleep apnea Diabetes GERD (gastroesophageal reflux disease) Elevated cholesterol HTN (hypertension) Surgical History Hx of cardiac cath Hx of excision of mass Hx of neck surgery Hx of tonsillectomy History of hemilaminectomy Hx of hernia repair Hx of shoulder surgery Hx of elbow surgery Hx of nasal septoplasty History of esophagogastroduodenoscopy (EGD) H/O colonoscopy Family History Mother Heart problem Father Heart problem Alzheimer disease Social History Alcohol intake: current Alcohol intake frequency: holidays/special occasions only Patient Tobacco Use Status: Never used Tobacco Review of Systems Const Reports chills, Reports fatigue and Denies weakness ENT Denies dizziness Card Denies chest pain, Denies chest pain with activity, Denies syncope, Denies rapid heart rate, Denies pedal edema, Denies edema, Denies leg edema, Denies lightheadedness, Denies palpitations, Reports dyspnea, Denies dyspnea on exertion and Denies orthopnea Resp Denies cough, Reports dyspnea and Denies dyspnea on exertion GI Denies hematochezia and Denies change in stool character Musc Denies abnormal gait, Denies muscle cramps, Denies muscle weakness, Denies numbness, Denies radiating pain into limb and Denies tingling Neuro Denies abnormal gait, Denies dizziness, Denies syncope, Denies numbness, Denies tingling and Denies weakness Endo Reports fatigue and Denies palpitations Physical Exam Vital Signs: Last Vital Signs Pulse 72 10/17/24 13:40 BP 140/78 H 10/17/24 13:40 BMI result Body Mass Index 25.3 Const General: comfortable and no acute distress Orientation/consciousness: patient oriented x3 HEENT Other: Unremarkable Head: Yes normal to inspection Neck Neck: Yes normal visual inspection Chest Chest palpation & inspection: normal inspection of the chest Resp Auscultation: clear to auscultation bilaterally Cardio Palpation: normal PMI Heart sounds: S1 normal heart sound present, S2 normal heart sound present, no gallops, no murmurs and no rubs GI Palpation (GI): Soft to palpation Back/Spine/Pelvis Other: unremarkable Skin General skin exam: no rashes or lesions noted Neuro General: patient oriented x3 Extrem General: Yes normal to inspection Psych Mental Status: mental status grossly normal Assessment & Plan Assessment & Plan (1) Shortness of breath on exertion: Code(s): R06.02 - Shortness of breath Category: Medical (2) Abnormal stress ECG with treadmill: Code(s): R94.39 - Abnormal result of other cardiovascular function study Category: Medical (3) Paroxysmal atrial fibrillation: Code(s): I48.0 - Paroxysmal atrial fibrillation Category: Medical (4) HTN (hypertension): Code(s): I10 - Essential (primary) hypertension Category: Medical (5) Atherosclerotic cardiovascular disease: Code(s): I25.10 - Atherosclerotic heart disease of [place] coronary artery without angina pectoris Category: Medical (6) Heart block: Code(s): I45.9 - Conduction disorder, unspecified Category: Medical Plan Cardiac studies reviewed. Echocardiogram at [facility] from 02/2024- LVEF 55-60%; mild LVH; diastolic dysfunction with elevated filling pressures. Also mention of atrial fibrillation/flutter with controlled rate during the study. In the EKG from [facility], February-probable sinus rhythm with a long UT and mild ST depression somewhat diffusely vs atrial flutter?? In the stress test, he exercised only for Sarmad stage I and reached 4.6 Mets; reached 44% of target heart rate with shortness of breath and decrease in blood pressure with ST depression. Again rhythm during the study is not very clear. In the cardiac catheterization, mid LAD 65% stenosis; normal IFR. Overall, shortness of breath, possibly from atrial flutter/fibrillation with some underlying AV bryce conduction system disease causing chronotropic incompetence; hypertension; moderate coronary disease. Among this, atrial arrhythmia as well as chronotropic incompetence most likely the main etiology. May proceed with ablation of atrial flutter/fibrillation as planned and possible pacemaker implantation. Hopefully should see some improvement. Continue anticoagulation. For hypertension, continue amlodipine. Increase in creatinine with chlorthalidone. Also has a history of hyperkalemia and hence possibly not suitable for JOANA inhibitor/ARB. May use beta-blockers post pacemaker. With regard to coronary disease, last LDL 104 mg/dL. We will need to add statins but okay to do after the ongoing arrhythmia issue is resolved. We will follow up after the ablation. Coding Level of Care Code Est Pt Level 4 (24631) Complex EM visit Add On G2211 Diagnoses Shortness of breath on exertion R06.02 Abnormal stress ECG with treadmill R94.39 Paroxysmal atrial fibrillation I48.0 HTN (hypertension) I10 Atherosclerotic cardiovascular disease I25.10 Heart block I45.9
--- OUTSIDE RECORDS SUMMARY | 2024-10-17 16:12 | XMS_ITS | Patient Health Record ---
Author Organization [facility] Address [address] [place] [address] Care Team Providers Care Fur Plucker Name Role Phone Juancarlos Núñez MD Primary Care Provider Unavailab Kain Garcia Unavailable [phone] Reason For Referral No Information Medications Medication SIG (Take, Route, Frequency, Duration) Notes Start Date End Date Status Cinnamon Active metFORMIN HCl 1000mg Active Omeprazole 20 MG 1 capsule Orally Onc e a day Active Simvastatin 40mg Act antelmo Lisinopril 10mg Acti ve Eliquis 5 MG TAKE 1 TABLET BY NIKKIE TH TWICE A DAY Oral for 30 Active Flecainide Acetate 100 MG TAKE 1 TABLET BY MOUTH EVERY 12 HOURS Oral for 30 Activ e Probiotic Orally Active Immunizations Vaccine Route Administration Date Status Comme nts Influenza Unknown 11/20/2020 Refused Social History Alcohol Screen Question Answer Notes Did you have a drink contain ing alcohol in the past year? Yes How often did you have a dri nk containing alcohol in the past year? 4 or more times a week (4 points) How many drinks did you have on a typical day when you were drinking in the past year? 3 or 4 drinks (1 point) Points 5 Interpretation Positive Section Notes: Nonsmoker; at least 6 beers, almost every day--reports having cut down somewhat Nonsmoker; at least 6 beers, almost every day--reports having cut down somewhat Nonsmoker; at least 6 beers, almost every day--reports having cut down somewhat Nonsmoker; at least 6 beers, almost every day--reports having cut down somewhat Nonsmoker; at least 6 beers, almost every day--reports having cut down somewhat Nonsmoker; at least 6 beers, almost every day--reports having cut down somewhat--doesn't drink daily anymore as of the 11/20/2020 office visit Problems Problem Type SNOMED Code ICD Code Onset Dates Problem Status W/U Status Risk Notes Problem 369329877 Encounter for screening for malignant neoplasm of colon (Z12.11) Active confirmed Problem 85904012 Diarrhea (R19.7) Active confirmed Problem 417123708 Irritable bowel syndrome with diarrhea (K58.0) Active confirmed Problem Screening for malignant neoplasm of rectum (344449513) Encounter for screening for malignant neoplasm of rectum (Z12.12) Active confirmed Problem 749062170 Gastroesophageal reflux disease without esophagitis (K21.9) Active confirmed Problem History of adenomatous polyp of colon (199129361) Hx of adenomatous colonic polyps (Z86.010) Active confirmed Plan Of Treatment Pending Test Test Name Order Date GI BIOPSY 10/08/2015 T4 (THYROXINE) 05/18/2012 TSH (THYROID STIMULATING HORMONE) 2011 ENDOMYSIAL IGA 05/18/2012 Future Test Test Name Order Date COLONOSCOPY 08/07/2015 COLONOSCOPY 11/20/2020 Insurance Providers Payer Name Payer Address Payer Phone Subscriber Number Group Number Insured Name Patient Relationship to Insured Coverage Start Date Coverage End Date [facility] [address] [place] [phone] [id number] ABDOUL GARCIA Self - patient is the insured Medical (General) History Medical History History ICD Code GERD-upper endoscopy in Dece mber of 2009 revealed a small hiatal hernia, but no evidence of any significant esophagitis nor Rivera's esophagus Colon polyps-tubular adenoma removed in 2009 NIDDM Hypertension Hyperlipidemia Factor V Leiden disease- he has never zelaya d a blood clot-on ASA 81mg Denies UT,CVA,Lung disease,renal disease Episode of gastroenteritis a nd transient irritable bowel type symptoms in the latter half of 2011 and beginning of 2012, with a negative workup including stool specimens, thyroid studies, and celiac disease laboratories Irregular heart beat-sees [facility]y COVID 09/2020 Colonoscopy 09/2015 with small tubular ad enomas removed Surgical History Surgery Date(Month/Year) Hernia surgery--left inguinal Cervical spine disc surgery 1995 Benign chest mass Tonsillectomy Vasectomy Right shoulder surgery/elbow Back surgery L4,L5--at [facility] 06/25/1016 C-spine discs and Back surgery 2019
--- OUTSIDE RECORDS SUMMARY | 2024-10-17 16:12 | XMS_ITS | Clinical Summary ---
Author Organization [facility] Address [address] [place] [address] Care Team Providers Care Director Of Quantitative Research Name Role Phone Juancarlos Núñez MD Primary Care Provider [phone] Allergies No known active allergies Medications Medication [...] this topic Medical Devices Implanted Type Area Motor Vehicles Inspector Device Identifier Shelf Expiration Date Model / Serial / Lot [id number] Patch Dural 3x1in Drmtrx-Onlay Plus Collagen Rgnrt Membrane - [id number] Implanted:Qty: 1 on 05/10/2019 by Sona Chapa MD at [facility] Tissue Right: Spine Lumbar KARLA THOMPSON 01/22/2020 [id number] / / [id number] Procedures Procedure Name Priority Date/Time Associated Diagnosis [...] 12:08 PM 05/10/2019 9:10 AM Care Teams Director Of Quantitative Research Relationship Specialty Start Date End Date Juancarlos Núñez MD [address] [place] [address] PCP - General Internal Medicine 01/17/19
--- OUTSIDE RECORDS SUMMARY | 2024-10-17 16:13 | XMS_ITS | Encounter Summary ---
Author Organization [address] [address] Care Team Providers Care Mail Order Clerk Name Role Phone Pcp, No Primary Care Provider Juancarlos Garcia MD Primary Care Provider [phone] Encounter Details Date Type Department Care Team (Late st Contact Info) Description 12/14/2018 Scanned Document [facility] [place] [address] [place] [address] Sona Chapa MD [address] [place] [address] Social History Tobacco Use Types Packs/Day Years [...] on filedocumented in this encounter Care Teams Mail Order Clerk Relationship Specialty Start Date End Date Pcp, No [address] [place] [address] PCP - General 12/04/18 01/16/19 Juancarlos Núñez MD [address] [place] [address] [address] [place] [address] PCP - General Internal Medicine 01/17/19 documented as of this encounter
== END 2024-10-17 14:01 | disposition home or self-care (01) ==
LOC: HO.HCS 13:38
PROVIDERS: PCP Family Medicine; Visit Provider Internal Medicine
DX: R06.02 Shortness of breath (principal); R94.39 Abnormal result of other cardiovascular function study; I48.0 Paroxysmal atrial fibrillation; I10 Essential (primary) hypertension; I25.10 Atherosclerotic heart disease of native coronary artery without angina pectoris; I45.9 Conduction disorder, unspecified
CPT/HCPCS: 99214

== ENCOUNTER → 2024-10-17 13:38 | Outpatient (BNVA) | payer BC, SELFPAY | PROVIDERS: PCP Family Medicine; Visit Provider Internal Medicine ==

== ENCOUNTER 2024-12-19 10:38 | Outpatient (AMB) | payer BC, SELFPAY ==
[2024-12-19 10:41] VITALS: BP 130/74; PULSE 54; BMI 24.7
--- NOTE | 2024-12-19 10:41 | A.OFFVIS_ITS ---
Vital Signs 12/19/24 10:41 Height 6 ft 1 in Weight 187 lb 6.287 oz BMI 24.7 BP 130/74 Blood Pressure Location Lt brachial Position Sitting Pulse 54 Intake Visit Reasons: 2m follow up Intake Note: 2 month follow-up with ekg after ablation patient states he feels the same Exchange Mechanic Required: No Allergies ENVIRONMENTAL Allergy (Intermediate, Uncoded 12/22/21 12:10) RUNNY NOSE Medication List - Last Reconciled 12/19/24 by Favio Kulkarni MD amlodipine 10 mg PO DAILY aspirin 81 mg PO DAILY cinnamon bark (Cinnamon) 500 mg PO DAILY furosemide 20 mg PO DAILY PRN ipratropium bromide 1 spray intranasal BID mecobalamin (vitamin B12) mcg PO metformin 1 tab PO BID omeprazole 20 mg PO DAILY rivaroxaban (Xarelto) 20 mg PO DAILY HPI Comments Details: Ad returns for follow-up regarding various cardiac issues. He has been having shortness of breath for the last several months. He underwent comprehensive workup for the same. During the exercise stress test, he had shortness of breath even at stage I and there was concern for chronotropic incompetence as well as blood pressure decrease with exercise. Cardiac catheterization did not show any significant findings explain his symptoms. Otherwise, there is a history of paroxysmal atrial fibrillation/flecainide use in the past. Blood pressure was another issue for which she was put on amlodipine. Recently saw EP and he underwent ablation for atrial flutter/fibrillation. Pending pacemaker for next week. Even after the ablation, he states he is not really feeling much different. [facility] Medical History (Updated 10/17/24 @ 15:25 by Favio Kulkarni MD) Arrhythmia Coagulopathy Sleep apnea Diabetes GERD (gastroesophageal reflux disease) Elevated cholesterol HTN (hypertension) Surgical History Hx of cardiac cath Hx of excision of mass Hx of neck surgery Hx of tonsillectomy History of hemilaminectomy Hx of hernia repair Hx of shoulder surgery Hx of elbow surgery Hx of nasal septoplasty History of esophagogastroduodenoscopy (EGD) H/O colonoscopy Family History Mother Heart problem Father Heart problem Alzheimer disease Social History Alcohol intake: current Alcohol intake frequency: holidays/special occasions only Patient Tobacco Use Status: Never used Tobacco Review of Systems Const Denies chills, Denies fatigue, Denies fever(s), Denies frequent falls, Denies weakness, Denies weight gain and Denies weight loss ENT Denies dizziness Card Denies chest pain, Denies leg edema, Denies lightheadedness, Denies palpitation s, Denies dyspnea, Denies dyspnea on exertion, Denies orthopnea and Denies other (loss of consciousness) Resp Denies cough, Denies dyspnea and Denies dyspnea on exertion GI Denies hematochezia and Denies change in stool character Musc Denies abnormal gait, Denies muscle weakness, Denies numbness, Denies radiating pain into limb and Denies tingling Neuro Denies abnormal gait, Denies dizziness, Denies frequent falls, Denies numbness, Denies tingling and Denies weakness Endo Denies fatigue and Denies palpitations Physical Exam Vital Signs: Last Vital Signs Pulse 54 12/19/24 10:41 BP 130/74 12/19/24 10:41 BMI result Body Mass Index 24.7 Const General: comfortable and no acute distress Orientation/consciousness: patient oriented x3 HEENT Other: Unremarkable Head: Yes normal to inspection Neck Neck: Yes normal visual inspection Chest Chest palpation & inspection: normal inspection of the chest Resp Auscultation: clear to auscultation bilaterally Cardio Palpation: normal PMI Heart sounds: S1 normal heart sound present, S2 normal heart sound present, no gallops, no murmurs and no rubs GI Palpation (GI): Soft to palpation Back/Spine/Pelvis Other: unremarkable Skin General skin exam: no rashes or lesions noted Neuro General: patient oriented x3 Extrem General: Yes normal to inspection Psych Mental Status: mental status grossly normal Office Procedures EKG Details: EKG with sinus bradycardia at 54/Min with Mobitz type one second-degree heart block; nonspecific ST-T changes. [id number], Complete Assessment & Plan Assessment & Plan (1) Shortness of breath on exertion: Code(s): R06.02 - Shortness of breath Category: Medical (2) Abnormal stress ECG with treadmill: Code(s): R94.39 - Abnormal result of other cardiovascular function study Category: Medical (3) Paroxysmal atrial fibrillation: Code(s): I48.0 - Paroxysmal atrial fibrillation Category: Medical (4) HTN (hypertension): Code(s): I10 - Essential (primary) hypertension Category: Medical (5) Atherosclerotic cardiovascular disease: Code(s): I25.10 - Atherosclerotic heart disease of [place] coronary artery without angina pectoris Category: Medical (6) Heart block: Code(s): I45.9 - Conduction disorder, unspecified Category: Medical Plan Cardiac studies reviewed. Echocardiogram at [facility] from 02/2024- LVEF 55-60%; mild LVH; diastolic dysfunction with elevated filling pressures. Also mention of atrial fibrillation/flutter with controlled rate during the study. In the EKG from [facility], February-probable sinus rhythm with a long NC and mild ST depression somewhat diffusely vs atrial flutter?? In the stress test, he exercised only for Sarmad stage I and reached 4.6 Mets; reached 44% of target heart rate with shortness of breath and decrease in blood pressure with ST depression. Again rhythm during the study is not very clear. In the cardiac catheterization, mid LAD 65% stenosis; normal IFR. Overall, shortness of breath suspected to be from atrial flutter/fibrillation with AV bryce conduction system disease with chronotropic incompetence. He is already status post ablation of atrial fibrillation, typical atrial flutter, atypical atrial flutter. Pending pacemaker for next week and that will hopefully make him feel better. Otherwise, blood pressure is stable on the current regimen no further changes. Increase in creatinine with chlorthalidone. Also has a history of hyperkalemia and hence possibly not suitable for JOANA inhibitor/ARB. May use beta-blockers post pacemaker. With regard to coronary disease, statins to be added some point. Awaiting resolution of the arrhythmia issue. Coding Level of Care Code Est Pt Level 4 (57516) Complex EM visit Add On G2211 Diagnoses Shortness of breath on exertion R06.02 Abnormal stress ECG with treadmill R94.39 Paroxysmal atrial fibrillation I48.0 HTN (hypertension) I10 Atherosclerotic cardiovascular disease I25.10 Heart block I45.9 CPT Codes EKG - CPT: [id number]-[id number], Complete ([id number])
--- OUTSIDE RECORDS SUMMARY | 2024-12-19 11:41 | XMS_ITS | Clinical Summary ---
Author Organization [facility] Address [address] [place] [address] Care Team Providers Care Greeting Card Editor Name Role Phone Kain Rivera DO Primary Care Provider [phone] Encounters Date Type Department Care Team Description 11/30/2024 Telephone [facility] - [address] [place] [address] Shivani Hunter NP from Last 3 Months Social History Tobacco Use Types Packs/Day Years Used Date Smoking Tobacco: Never Assessed Sex and Gender Information Value Date Recorded Sex Assigned at Not on file Legal Sex Male 2:01 AM EST Gender Identity Not on file Sexual Orientation Not on file Last Filed Vital Signs Vital Sign Reading Time Taken Comments Blood Pressure 130/80 03/08/2024 10:43 AM EDT Pulse - - Temperature - - Respiratory Rate - - Oxygen Saturation - - Inhaled Oxygen Concentration - - Weight 87.1 kg (192 lb) 03/08/2024 10:43 AM EDT Height 185.4 cm (6' 1 ) 03/08/2024 10:43 AM EDT Body Mass Index 25.33 03/08/2024 10:43 AM EDT Plan of Treatment Health Maintenance Due Date Last Done Comments DTaP,Tdap,and Td Vaccines (1 - Tdap) 01/01/1979 Pneumococcal Vaccine: 50+ Ye ars (1 of 1 - PCV) 01/01/2010 Zoster Vaccines (1 of 2) 01/01/2010 RSV Immunization Adult Patie nts (1 - Risk 60-74 years 1-dose series) 2020 COVID-19 Vaccine ( - 2023-2 5 season) 2024 Cholesterol Screening (Lipid Panel) 05/01/2024 Colorectal Cancer Screening: Colonoscopy 05/01/2024 Depression Screening 05/01/2024 HIV Screening 05/01/2024 Hepatitis C Screening 05/01/2024 Social Influencers of Health Screening 05/01/2024 Influenza Vaccine (Season Ended) 2025 HIB Vaccines Aged Out No longer eligi ble based on patient's age to complete this topic HPV Vaccines Aged Out No longer eligi ble based on patient's age to complete this topic Hepatitis A Vaccines Aged Out No long er eligible based on patient's age to complete this topic Hepatitis B Vaccines Aged Out No long er eligible based on patient's age to complete this topic IPV Vaccines Aged Out No longer eligi ble based on patient's age to complete this topic MMR Vaccines Aged Out No longer eligi ble based on patient's age to complete this topic Meningococcal ACWY Vaccine Aged Out N o longer eligible based on patient's age to complete this topic Meningococcal B Vaccine Aged Out No l onger eligible based on patient's age to complete this topic Pneumococcal Vaccine: Pediat rics (0 to 5 Years) and At-Risk Patients (6 to 64 Years) Aged Out No longer eligible b ased on patient's age to complete this topic RSV Immunization Patients Un tricia 20 months Aged Out No longer eligible b ased on patient's age to complete this topic Varicella Vaccines Aged Out No longer eligible based on patient's age to complete this topic Care Teams Greeting Card Editor Relationship Specialty Start Date End Date [facility] [place] [place] [facility] - General 02/29/24
== END 2024-12-19 11:04 | disposition home or self-care (01) ==
LOC: HO.HCS 10:39
PROVIDERS: PCP Family Medicine; Visit Provider Internal Medicine
DX: R06.02 Shortness of breath (principal); R94.39 Abnormal result of other cardiovascular function study; I48.0 Paroxysmal atrial fibrillation; I10 Essential (primary) hypertension; I25.10 Atherosclerotic heart disease of native coronary artery without angina pectoris; I45.9 Conduction disorder, unspecified
CPT/HCPCS: 93010; 99214

== ENCOUNTER → 2024-12-19 10:38 | Outpatient (BNVA) | payer BC, SELFPAY | PROVIDERS: PCP Family Medicine; Visit Provider Internal Medicine | DX: I48.0 Paroxysmal atrial fibrillation (principal); I25.10 Atherosclerotic heart disease of native coronary artery without angina pectoris; I45.9 Conduction disorder, unspecified; I10 Essential (primary) hypertension; R06.02 Shortness of breath; R94.39 Abnormal result of other cardiovascular function study | CPT/HCPCS: 93005 ==

== ENCOUNTER 2025-01-17 09:42 | Outpatient (AMB) | payer MEDICARE, BC, SELFPAY ==
[2025-01-17 09:46] VITALS: BP 120/74; PULSE 88; BMI 24.1
--- NOTE | 2025-01-17 09:46 | A.OFFVIS_ITS ---
Vital Signs 01/17/25 09:46 Height 6 ft 1 in Weight 182 lb 8.684 oz BMI 24.1 BP 120/74 Blood Pressure Location Lt brachial Position Sitting Pulse 88 Pulse Source Pulse Oximeter Intake Visit Reasons: 4 wk s/p pacer implant Breeder Service Technician Required: No Allergies ENVIRONMENTAL Allergy (Intermediate, Uncoded 01/17/25 09:48) RUNNY NOSE Medication List - Last Reconciled 01/17/25 by Jaz Davies, JOURNEYMAN MACHINIST-C amlodipine 10 mg PO DAILY aspirin 81 mg PO DAILY cinnamon bark (Cinnamon) 500 mg PO DAILY furosemide 20 mg PO DAILY PRN ipratropium bromide 1 spray intranasal BID mecobalamin (vitamin B12) mcg PO metformin 1 tab PO BID omeprazole 20 mg PO DAILY rivaroxaban (Xarelto) 20 mg PO DAILY HPI HPI 4 wk s/p pacer implant: Details: Abram is a 65-year-old male with past medical history of hypertension, hyperlipidemia, diabetes, sleep apnea, paroxysmal atrial fibrillation status post ablation, 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 Today he reports he has been doing well since his pacemaker placement. He is n oticing less fatigue and more energy. His less shortness of breath with activity. Minor discomfort at pacemaker site. He did see Dr. martinez for wound check and has to go back in 3 weeks for device check. He has no chest discomfort otherwise, no palpitations, lightheadedness, presyncope, syncope, falls. He reports doing normal type activities. Taking meds as directed. [facility] Medical History Arrhythmia Coagulopathy Sleep apnea Diabetes GERD (gastroesophageal reflux disease) Elevated cholesterol HTN (hypertension) Surgical History Hx of cardiac cath Hx of excision of mass Hx of neck surgery Hx of tonsillectomy History of hemilaminectomy Hx of hernia repair Hx of shoulder surgery Hx of elbow surgery Hx of nasal septoplasty History of esophagogastroduodenoscopy (EGD) H/O colonoscopy Family History Mother Heart problem Father Heart problem Alzheimer disease Social History Alcohol intake: current Alcohol intake frequency: holidays/special occasions only Patient Tobacco Use Status: Never used Tobacco Review of Systems Const All systems reviewed & are unremarkable except as noted in HPI and below ENT Denies dizziness Card Denies chest pain, Denies chest pain at rest, Denies chest pain with activity, Denies rapid heart rate, Denies pedal edema, Denies edema, Denies leg edema, Denies lightheadedness, Denies palpitations, Denies dyspnea, Denies dyspnea on exertion and Denies orthopnea Resp Denies cough, Denies dyspnea and Denies dyspnea on exertion GI Denies hematochezia and Denies change in stool character Musc Denies abnormal gait, Denies limited range of motion, Denies muscle cramps, Denies muscle weakness, Denies numbness, Denies radiating pain into limb, Denies stiffness and Denies tingling Neuro Denies abnormal gait, Denies dizziness, Denies numbness and Denies tingling Endo Denies palpitations Physical Exam Vital Signs: Last Vital Signs Pulse 88 01/17/25 09:46 BP 120/74 01/17/25 09:46 BMI result Body Mass Index 24.1 Const General: cooperative, healthy appearing, comfortable and no acute distress Orientation/consciousness: patient oriented x3 Neck Neck: Yes normal visual inspection Chest Other: Pacemaker site left upper chest healing well without signs of infection. Incision well approximated. Chest palpation & inspection: normal inspection of the chest Resp Effort & Inspection: normal respiratory effort Auscultation: clear to auscultation bilaterally, no rales, no rhonchi and no wheezes Cardio Rate: regular rate Rhythm: regular rhythm Heart sounds: S1 normal heart sound present, S2 normal heart sound present, no gallops, no murmurs and no rubs Neuro General: patient oriented x3 Extrem General: Yes normal to inspection, No no pedal edema and No calf tenderness Psych Appearance: grossly normal Mental Status: mental status grossly normal Speech and movement: Normal speech and movement present Assessment & Plan Assessment & Plan (1) Shortness of breath on exertion: Code(s): R06.02 - Shortness of breath Category: Medical Plan: Reports of shortness of breath with activity with cardiac catheterization 05/2024 showing moderate LAD stenosis with normal IFR, not contributing to his symptom. Holter monitor 05/08/2024 showed atrial fibrillation, rate 57, rare ectopy. He recently underwent an AFib ablation and follow-up EP study showed two-to-one AV node block. 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 He underwent a dual-chamber pacemaker with left bundle pacing on 12/28/2024 and now reports that his shortness of breath and fatigue is improving. (2) Paroxysmal atrial fibrillation: Code(s): I48.0 - Paroxysmal atrial fibrillation Category: Medical Plan: History of paroxysmal atrial fibrillation status post AFib and flutter ablation 10/30/[address] Martinez. No known recurrent AFib or flutter since that time. Pulse regular on examination, clinically in sinus rhythm. He is not on any rate slowing agents. He is on Xarelto 20 mg daily. He is also taking aspirin which is not needed at this time, will have him stop. (3) HTN (hypertension): Code(s): I10 - Essential (primary) hypertension Category: Medical Plan: Blood pressure goal less than 130/80, well controlled at this time. Continue amlodipine. (4) Atherosclerotic cardiovascular disease: Comment: Cardiac catheterization 05/29/2024 shows mid LAD 65% stenosis, left circumflex minimal luminal irregularities, IFR of LAD normal at 0.91. Code(s): I25.10 - Atherosclerotic heart disease of [place] coronary artery without angina pectoris Category: Medical Plan: Moderate nonobstructive coronary disease. No reports of anginal symptoms. Will have him stop aspirin as he is on Xarelto. He is not on rate slowing agents. He is not on statins for unclear reason. Labs from 01/13/2024 showed LDL 104. Will plan to reach out and see if he is willing to start on (5) Heart block: Code(s): I45.9 - Conduction disorder, unspecified Category: Medical Plan I discussed with the patient the importance of continuing Xarelto for atrial fibrillation management to reduce stroke risk and advised discontinuing aspirin to prevent excessive anticoagulation. We reviewed the remote monitoring setup f or the pacemaker and the upcoming device check in three weeks. I explained the need to avoid excessive arm movement to manage post-surgical incision discomfort and to monitor for any signs of infection. We also discussed managing edema with diuretics as needed and considering venous insufficiency as a contributing factor. Patient Instructions: - Continue taking Xarelto as prescribed. - Discontinue aspirin to avoid excessive bleeding risk. - Avoid excessive arm movement to prevent incision strain. - Monitor for signs of infection at the incision site. - Use diuretics as needed for edema management. - Attend follow-up device check in three weeks. Patient was informed and verbally consented to the use of an ambient scribe for clinic note documentation during this visit. Visit time spent on chart review, interview, assessment, orders, documentation. Coding Level of Care Code Est Pt Level 4 (92135) Diagnoses Shortness of breath on exertion R06.02 Paroxysmal atrial fibrillation I48.0 HTN (hypertension) I10 Atherosclerotic cardiovascular disease I25.10 Heart block I45.9 Time Spent (min) 32
--- OUTSIDE RECORDS SUMMARY | 2025-01-17 10:52 | XMS_ITS | Clinical Summary ---
Author Organization [employer] [facility] ity Address [address] [place] [address] Care Team Providers Care Bit Bender Name Role Phone Kain Rivera DO Primary Care Provider [phone] Encounters Date Type Department Care Team Description 11/30/2024 Telephone [facility] - [address] [place] [address] Shivani Hunter NP from Last [...] Vaccine ( - 2023-2 5 season) 2024 Abdominal Aortic Aneurysm (A AA) Screen 05/01/2024 Cholesterol Screening (Lipid Panel) 05/01/2024 Colorectal Cancer Screening: Colonoscopy 05/01/2024 Depression Screening 05/01/2024 Hepatitis C Screening 05/01/2024 Social Influencers of Health Screening 05/01/2024 Falls Risk Assessment 01/01/2025 Influenza Vaccine (Season Ended) 2025 HIB Vaccines [...] age to complete this topic Care Teams Bit Bender Relationship Specialty Start Date End Date Kain Rivera DO [address] [place] [address] PCP - General 02/29/24
== END 2025-01-17 10:26 | disposition home or self-care (01) ==
PROVIDERS: PCP Family Medicine; Visit Provider Nurse Practitioner Family
DX: R06.02 Shortness of breath (principal); I48.0 Paroxysmal atrial fibrillation; I10 Essential (primary) hypertension; I25.10 Atherosclerotic heart disease of native coronary artery without angina pectoris; I45.9 Conduction disorder, unspecified
CPT/HCPCS: 99214

== ENCOUNTER → 2025-01-17 09:42 | Outpatient (BNVA) | payer BC, SELFPAY | PROVIDERS: PCP Family Medicine; Visit Provider Nurse Practitioner Family | DX: R06.02 Shortness of breath (principal); I48.0 Paroxysmal atrial fibrillation; I10 Essential (primary) hypertension; I45.9 Conduction disorder, unspecified; I25.10 Atherosclerotic heart disease of native coronary artery without angina pectoris | CPT/HCPCS: 99212 ==

== ENCOUNTER → 2025-03-17 23:59 | Outpatient (BNV) | payer MEDICARE, SELFPAY ==
--- NOTE | 2025-03-21 20:43 | A.OFFVIS_ITS ---
Intake Visit Reasons: Remote device check- Medtronic Allergies ENVIRONMENTAL Allergy (Intermediate, Uncoded 01/17/25 09:48) RUNNY NOSE PFSH Medical History Arrhythmia Coagulopathy Sleep apnea Diabetes GERD (gastroesophageal reflux disease) Elevated cholesterol HTN (hypertension) Surgical History Hx of cardiac cath Hx of excision of mass Hx of neck surgery Hx of tonsillectomy History of hemilaminectomy Hx of hernia repair Hx of shoulder surgery Hx of elbow surgery Hx of nasal septoplasty History of esophagogastroduodenoscopy (EGD) H/O colonoscopy Family History Mother Heart problem Father Heart problem Alzheimer disease Social History Alcohol intake: current Alcohol intake frequency: holidays/special occasions only Patient Tobacco Use Status: Never used Tobacco Office Procedures Cardiac Device Check Cardiac Device Check Details: Date of service- 03/17/2025 ; Battery life >12 years; normal lead parameters; AP 30%; ASSISTANT MANAGER QUALITY MANAGEMENT >99%; no significant arrhythmias. Overall normal device function. [id number] Cardiac Device Interrogation, pacemaker Procedure code (CPT) selection complete Assessment & Plan Assessment & Plan (1) Pacemaker: Code(s): Z95.0 - Presence of cardiac pacemaker Category: Medical (2) Heart block: Code(s): I45.9 - Conduction disorder, unspecified Category: Medical Plan x Coding Level of Care Code Procedure Only Diagnoses Pacemaker Z95.0 Heart block I45.9 CPT Codes Cardiac Device Check - Cardiac Device 12: [id number] Cardiac Device Interrogation, pacemaker ([id number])
== END ==
PROVIDERS: PCP Family Medicine; Visit Provider Internal Medicine
DX: I45.9 Conduction disorder, unspecified (principal); Z95.0 Presence of cardiac pacemaker
CPT/HCPCS: 93294

== ENCOUNTER → 2025-06-30 14:34 | Outpatient (BNV) | payer MEDICARE, SELFPAY | PROVIDERS: PCP Family Medicine; Visit Provider Internal Medicine | DX: I45.9 Conduction disorder, unspecified (principal); Z95.0 Presence of cardiac pacemaker | CPT/HCPCS: 93294 ==

== ENCOUNTER 2025-07-01 14:56 | Outpatient (AMB) | payer MEDICARE, SELFPAY ==
[2025-07-01 15:37] VITALS: BP 128/70; PULSE 80; BMI 24.4
--- NOTE | 2025-07-01 15:37 | MHC.OFFVIS ---
Vital Signs 07/01/25 15:37 Height 6 ft 1 in Weight 185 lb 3.013 oz BMI 24.4 BP 128/70 Blood Pressure Location Lt brachial Position Sitting Pulse 80 Pulse Source Pulse Oximeter Intake Visit Reasons: 6 month w/ device ck Allergies ENVIRONMENTAL Allergy (Intermediate, Uncoded 01/17/25 09:48) RUNNY NOSE Medication List - Last Reconciled 07/01/25 by Jaz Davies, JAMESON-C atorvastatin 20 mg PO BEDTIME cinnamon bark (Cinnamon) 500 mg PO DAILY furosemide 20 mg PO DAILY PRN ipratropium bromide 1 spray intranasal BID mecobalamin (vitamin B12) mcg PO metformin 1 tab PO BID metoprolol succinate ER 50 mg PO DAILY omeprazole 20 mg PO DAILY rivaroxaban (Xarelto) 20 mg PO DAILY HPI HPI 6 month w/ device ck: Details: Abram is a 65-year-old male with past medical history of hypertension, hyperlipidemia, diabetes, sleep apnea, paroxysmal atrial fibrillation status post ablation, 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 Today he reports he has been noticing some shortness of breath with exertional activities such as climbing a few flights of stairs and walking up incline. A few days ago he woke up in the night feeling short of breath which kept him awake for a few hours. He has not taken Lasix recently. He also has fatigue which he feels is more noticeable recently. No chest discomfort, palpitations, lightheadedness, presyncope, syncope, falls. He is concerned the pacemaker is not working right. He has been doing normal type activities. Taking meds as directed. [facility] Medical History Arrhythmia Coagulopathy Sleep apnea Diabetes GERD (gastroesophageal reflux disease) Elevated cholesterol HTN (hypertension) Surgical History Hx of cardiac cath Hx of excision of mass Hx of neck surgery Hx of tonsillectomy History of hemilaminectomy Hx of hernia repair Hx of shoulder surgery Hx of elbow surgery Hx of nasal septoplasty History of esophagogastroduodenoscopy (EGD) H/O colonoscopy Family History Mother Heart problem Father Heart problem Alzheimer disease Social History Alcohol intake: current Alcohol intake frequency: holidays/special occasions only Patient Tobacco Use Status: Never used Tobacco Review of Systems Const All systems reviewed & are unremarkable except as noted in HPI and below Reports fatigue and Denies weakness ENT Denies dizziness Card Denies chest pain, Denies chest pain with activity, Denies syncope, Denies rapid heart rate, Denies pedal edema, Denies edema, Denies leg edema, Denies lightheadedness, Denies palpitations, Denies dyspnea, Reports dyspnea on exertion and Denies orthopnea Resp Denies cough, Denies dyspnea and Reports dyspnea on exertion GI Denies hematochezia and Denies change in stool character Musc Denies abnormal gait, Denies muscle cramps, Denies muscle weakness, Denies numbness, Denies radiating pain into limb and Denies tingling Neuro Denies abnormal gait, Denies dizziness, Denies syncope, Denies numbness, Denies tingling and Denies weakness Endo Reports fatigue and Denies palpitations Physical Exam Vital Signs: Last Vital Signs Pulse 80 07/01/25 15:37 BP 128/70 07/01/25 15:37 BMI result Body Mass Index 24.4 Const General: cooperative, healthy appearing, comfortable and no acute distress Orientation/consciousness: patient oriented x3 Neck Neck: Yes normal visual inspection Chest Chest palpation & inspection: normal inspection of the chest Resp Effort & Inspection: normal respiratory effort Auscultation: clear to auscultation bilaterally, no rales, no rhonchi and no wheezes Cardio Rate: regular rate Rhythm: regular rhythm Heart sounds: S1 normal heart sound present, S2 normal heart sound present, no gallops, no murmurs and no rubs Neuro General: patient oriented x3 Extrem General: Yes normal to inspection, No no pedal edema and No calf tenderness Psych Appearance: grossly normal Mental Status: mental status grossly normal Speech and movement: Normal speech and movement present Office Procedures Cardiac Device Check Cardiac Device Check Details: Today, read by me, Medtronic dual chamber pacemaker, battery 12.1 years, DDD mode, low rate 60, rate histogram normal, a paced 34%, V paced 99.8%, 2 brief NSVT on [facility] last episode 03/29/2025, right atrial threshold 0.75 volts at 0.4 milliseconds, right ventricle threshold 0.75 volts at 0.4 millisecond [id number] Cardiac Device Check, pacemaker dual lead Procedure code (CPT) selection complete Assessment & Plan Assessment & Plan (1) Shortness of breath on exertion: Code(s): R06.02 - Shortness of breath Category: Medical Plan: Shortness of breath with exertion and 1 episode during the night which he feels is newer for him. Chronic reports of fatigue present. Last echocardiogram 02/20/2025 showed EF 50%. He had pacemaker placed last November and is V pacing 99.8% today. He does not appear fluid overloaded on exam. Will update limited echo to reassess ejection fraction due to frequent RV pacing. (2) Paroxysmal atrial fibrillation: Code(s): I48.0 - Paroxysmal atrial fibrillation Category: Medical Plan: History of paroxysmal atrial fibrillation status post AFib and flutter ablation 10/30/[address] Eid. No known recurrent AFib or flutter since that time. Pulse regular on examination, clinically in sinus rhythm. He is on metoprolo and rate histogram seems normal. He is on Xarelto 20 mg daily. Recommend biannual CBC and BMP (3) HTN (hypertension): Code(s): I10 - Essential (primary) hypertension Category: Medical Plan: Blood pressure goal less than 130/80, well controlled at this time. Continue amlodipine, metoprolol. (4) Atherosclerotic cardiovascular disease: Comment: Cardiac catheterization 05/29/2024 shows mid LAD 65% stenosis, left circumflex minimal luminal irregularities, IFR of LAD normal at 0.91. Code(s): I25.10 - Atherosclerotic heart disease of [place] coronary artery without angina pectoris Category: Medical Plan: Moderate nonobstructive coronary disease. No reports of anginal symptoms. He is not on aspirin as he is on Xarelto. Continue metoprolol. Continue atorvastatin with ideal LDL goal less than 70. (5) Heart block: Code(s): I45.9 - Conduction disorder, unspecified Category: Medical Plan: Status post pacemaker Plan Time spent on chart review, documentation, intravenous assessment Orders: Orders CA Echo Limited Today I25.10 - Atherosclerotic heart disease of [place] coronary artery without angina pectoris, R06.02 - Shortness of breath Coding Level of Care Code Est Pt Level 4 (19146) Complex visit Add On G2211 Diagnoses Shortness of breath on exertion R06.02 Paroxysmal atrial fibrillation I48.0 HTN (hypertension) I10 Atherosclerotic cardiovascular disease I25.10 Heart block I45.9 CPT Codes Cardiac Device Check - Cardiac Device 2: [id number] Cardiac Device Check, pacemaker dual lead ([id number]) Time Spent (min) 32
== END 2025-07-01 16:16 | disposition home or self-care (01) ==
LOC: HO.HCS 14:57
PROVIDERS: PCP Family Medicine; Visit Provider Nurse Practitioner Family
DX: R06.02 Shortness of breath (principal); I48.0 Paroxysmal atrial fibrillation; I10 Essential (primary) hypertension; I25.10 Atherosclerotic heart disease of native coronary artery without angina pectoris; I45.9 Conduction disorder, unspecified
CPT/HCPCS: 93280; 99214; G2211

== ENCOUNTER → 2025-07-01 14:56 | Outpatient (BNVA) | payer MEDICARE, SELFPAY | PROVIDERS: PCP Family Medicine; Visit Provider Nurse Practitioner Family | DX: Z45.018 Encounter for adjustment and management of other part of cardiac pacemaker (principal) | CPT/HCPCS: 93280; 93288; 99212 ==

== ENCOUNTER → 2025-07-11 08:56 | Outpatient (REF) | payer MEDICARE, SELFPAY ==
--- OUTSIDE RECORDS SUMMARY | 2025-07-11 09:42 | XMS_ITS | Clinical Summary ---
Author Organization [facility] Address [address] [place] [address] Care Team Providers Care Optical Instrument Assembler Name Role Phone Juancarlos Núñez MD Primary Care Provider [phone] Allergies No known active allergies Medications ipratropium (ATROVENT) 0.06 % nasal spray 1 spray 2 (two) times a day. 3 9 Active lisinopril (PRINIVIL,ZeSTRIL) 5 MG tablet Take 5 mg by mouth daily. 9 Active metFORMIN (GLUCOPHAGE) 1000 MG tablet Take 1,000 mg by mouth 2 (two) times a day with meals. 9 Active simvastatin (ZOCOR) 40 MG tablet Take 40 mg by mouth nightly. 9 Active CINNAMON PO Take 2 tablets by mouth nightly. Active aspirin enteric coated (ECOTRIN LOW STRENGTH) 81 MG EC tablet Take 81 mg by mouth daily. Active OMEprazole (PriLOSEC) 20 MG capsule Take 20 mg by mouth every morning before breakfast. 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 Diabetes mellitus 12/14/2018 Hypertension 12/14/2018 Gastric reflux 12/14/2018 Other spondylosis with radiculopathy, cervical r egion 12/14/2018 Immunizations Immunization Administration Dates Next Due Influenza Inactivated/Split Preservative Free IM 05/11/2019() Social History Tobacco Use Types Packs/Day Years Used Date Smoking Tobacco: Never Smokeless Tobacco: Never Alcohol Use Standard Drinks/Week Comments Yes 0 (1 standard drink = 0.6 oz pur e alcohol) approx 4-5x/week/ 12-24 drinks Sex and Gender Information Value Date Recorded Sex Assigned at Not on file Legal Sex Male 6:13 PM EST Gender Identity Not on file Sexual Orientation Not on file Last Filed Vital Signs Vital Sign Reading Time Taken Comments Blood Pressure 130/74 05/22/2019 9:33 AM EDT Pulse 80 05/22/2019 9:33 AM EDT Temperature 36.6 C (97.9 F) 05/11/2019 10:38 AM EDT Respiratory Rate 16 05/11/2019 10:38 AM EDT Oxygen Saturation 98% 05/11/2019 10:38 AM EDT Inhaled Oxygen Concentration - - Weight 88 kg (194 lb) 05/22/2019 9:33 AM EDT Height 185.4 cm (6' 1 ) 05/22/2019 9:33 AM EDT Body Mass Index 25.6 05/22/2019 9:33 AM EDT Plan of Treatment Health Maintenance Due Date Last Done Comments Advance Care Planning 1960 Hepatitis C Virus Screening 1960 Foot Exam 01/01/1970 Lipid Panel 01/01/1970 Ophthalmology Exam 01/01/1970 HIV Screening 01/01/1973 Microalbumin/Creatinine Rati o Urine 01/01/1978 DTaP/Tdap/Td Vaccines (1 - Tdap) 01/01/1979 Pneumococcal Vaccines 50+ (1 of 2 - PCV) 01/01/1979 Colonoscopy 01/01/2005 RSV Vaccine 50 years and old er and Patients (1 - Risk 50-74 years 1-dose series) 01/01/2010 Zoster (Shingles) Vaccine (1 of 2) 01/01/2010 Hemoglobin A1C 11/10/2019 05/11/2019 Creatinine with GFR 02/10/2020 02/09/2019, 02/08/2019 Influenza Vaccine 02/22/2025 COVID-19 Vaccine (1 - 2025-2 6 season) 2025 Hepatitis B Vaccines Aged Out No long er eligible based on patient's age to complete this topic Medical Devices Implanted Type Area Canvass Manager Device Identifier Shelf Expiration Date Model / Serial / Lot [id number] Patch Dural 3x1in Drmtrx-[place] Plus Collagen Rgnrt Membrane - [id number] Implanted:Qty: 1 on 05/10/2019 by Sona Chapa MD at [facility] Tissue Right: Spine Lumbar KARLA THOMPSON 01/22/2020 [id number] / / [id number] Procedures Procedure Name Priority Date/Time Associated Diagnosis Comments HEMOGLOBIN A1C WITH ESTIMATED AVERAGE GLUCOSE Routine 05/11/2019 4:41 AM EDT BASIC METABOLIC PANEL Routine 02/09/2019 5:42 AM EDT from Last 3 Months or Most Recently Relevant to Health Maintenance Results * (ABNORMAL) Hemoglobin A1c with Estimated Average Glucose (05/11/2019 4:41 AM EDT) Hemoglobin A1C 8.0(H) <5.7 % [facility] Comment: A1c% Interpretation 5.7 - 6.0 Increase risk of diabetes 6.1 - 6.4 Higher risk of diabetes > or = 6.5 Consistent with diabetes Diabetes Care, 33(Supp 1):S1-S61, 2009 Estimated Average Glucose 183 mg/dL [facility] Blood specimen (specimen) Blood specimen / Unknown 05/11/2019 4:41 AM EDT 05/11/2019 5:07 AM EDT us Vidya GARCIA LAB BLOOD ORDERABLES Final Res ult [facility]OS[facility]ITAL [facility] * (ABNORMAL) Basic Metabolic Panel (02/09/2019 5:42 AM EDT) Glucose 178(H) 65 - 99 mg/dL [facility] Comment:Fasting: <100 mg/dL, Non-Fasting: <200 mg/dL (ADA 2004) Blood Urea Nitrogen (BUN) 13 8 - [...] AM EDT Laisha Pressley PA-C LAB BLOOD ORDERABLES Final Result [facility]ITAL [facility] from Last 3 Months or Most Recently Relevant to Health Maintenance Insurance [facility] Advance Directives * Full Code (Latest Code Status on File) Date Activated Date Inactivated Comments 05/10/2019 1:43 PM * Full Code Date Activated Date Inactivated Comments 02/08/2019 12:08 PM 05/10/2019 9:10 AM Care Teams Optical Instrument Assembler Relationship Specialty Start Date End Date Juancarlos Núñez MD [address] [place] [id number] PCP - General Internal Medicine 01/17/19
--- OUTSIDE RECORDS SUMMARY | 2025-07-11 09:42 | XMS_ITS | Clinical Summary ---
Author Organization [facility] ity Address [address] [place] [address] Care Team Providers Care Video Conference Specialist Name Role Phone Kain Rivera DO Primary Care Provider [phone] Social History Tobacco Use Types Packs/Day Years [...] Health Maintenance Due Date Last Done Comments Colorectal Cancer Screening: Colonoscopy 1960 DTaP,Tdap,and Td Vaccines (1 - Tdap) 01/01/1979 Pneumococcal Vaccine: 50+ Ye ars (1 of 1 - PCV) 01/01/2010 Zoster Vaccines (1 of 2) 01/01/2010 Abdominal Aortic Aneurysm (A AA) Screen 05/01/2024 Cholesterol Screening (Lipid Panel) 05/01/2024 Hepatitis C Screening 05/01/2024 Social Influencers of Health Screening 05/01/2024 Depression Screening 07/25/2024 Falls Risk Assessment 01/01/2025 COVID-19 Vaccine (1 - 2024-2 6 season) 2025 Influenza Vaccine (#1) 2025 RSV Immunization Adult Patie nts (1 - 1-dose 75+ series) 01/01/2035 HIB Vaccines Aged Out No longer eligi [...] age to complete this topic Care Teams Video Conference Specialist Relationship Specialty Start Date End Date [facility] DO [facility] [place] PCP - General 02/29/24
--- OUTSIDE RECORDS SUMMARY | 2025-07-11 09:42 | XMS_ITS | Encounter Summary ---
Author Organization [facility] Address [address] [place] [address] Care Team Providers Care Title I Instructional Assistant Name Role Phone Pcp, No Primary Care Provider Juancarlos Garcia MD Primary Care Provider [phone] Encounter Details Date Type Department Care Team (Late st Contact Info) Description 12/14/2018 Scanned Document [facility] Neurosurgery [place] 85 [facility] [address] [place] [id number] Sona Chapa MD 85 [facility] [address] [place] [address] Social History Tobacco Use Types Packs/Day Years [...] on filedocumented in this encounter Care Teams Title I Instructional Assistant Relationship Specialty Start Date End Date Pcp, No [address] [place] [address] PCP - General 12/04/18 01/16/19 Juancarlos Núñez MD [address] [place] [id number] PCP - General Internal Medicine 01/17/19 documented as of this encounter
--- OUTSIDE RECORDS SUMMARY | 2025-07-11 09:42 | XMS_ITS | Encounter Summary ---
Author Organization [facility] Address [address] [place] [address] Care Team Providers Care Gi Tech Name Role Phone Pcp, No Primary Care Provider Juancarlos Garcia MD Primary Care Provider [phone] Encounter Details Date Type Department Care Team (Late st Contact Info) Description 12/14/2018 Scanned Document [facility] Neurosurgery [place] 85 [facility] [address] [place] [address] Social History Tobacco Use Types Packs/Day Years [...] on filedocumented in this encounter Care Teams Gi Tech Relationship Specialty Start Date End Date Pcp, No [address] [place] [address] PCP - General 12/04/18 01/16/19 Juancarlos Núñez MD [address] [place] [address] PCP - General Internal Medicine 01/17/19 documented as of this encounter
--- OUTSIDE RECORDS SUMMARY | 2025-07-11 09:42 | XMS_ITS | Patient Health Record ---
Author Organization [facility] Address [address] [place] [address] Care Team Providers Care Sorting Cows Worker Name Role Phone Juancarlos Núñez MD Primary Care Provider UnavailKain Magallon Unavailable [phone] Reason For Referral No Information Medications Medication SIG (Take, Route, Frequency, Duration) Notes Start Date End Date Status Cinnamon Active metFORMIN HCl 1000mg Active Omeprazole 20 MG Tablet Delayed Release 1 capsule Orally Once a day Active Simvastatin 40mg Act antelmo Lisinopril 10mg Acti ve Eliquis 5 MG Tablet TAKE 1 TABLET BY NIKKIE TH TWICE A DAY Oral; Duration: 30 Active Flecainide Acetate 100 MG Tablet TAKE 1 TABLET BY MOUTH EVERY 12 HOURS Oral; Duration: 30 Active Probiotic Capsule Orally Ac tive Immunizations Vaccine Route Administration Date Status Comme nts Influenza Unknown 11/20/2020 Refused Social History Social History Drugs/Alcohol: Social Info Question Answer Notes Alcohol Screen Did you have a drink containing alcohol in the past year? Yes How often did you have a drink containing alcohol in the past year? 4 or more times a week (4 points) How many drinks did you have on a typical day when you were drinking in the past year? 3 or 4 drinks (1 point) Points 5 Interpretation Positive Additional Details Category Social Info Options Details Miscellaneous: Marital status: Occupation: Retired [email or web address] Section Notes: Nonsmoker; at least 6 beers, [...] Problem Status W/U Status Risk Notes Problem Screening for malignant neoplasm of colon (504832681) Encounter for screening for malignant neoplasm of colon (Z12.11) Active confirmed Problem Diarrhea (61776816) Diarrhea (R19.7) Active con firmed Problem Irritable bowel syndrome with diarrhea (807677553) Irritable bowel syndrome with diarrhea (K58.0) Active confirmed Problem Screening for malignant neoplasm of rectum (663344620) Encounter for screening for malignant neoplasm of rectum (Z12.12) Active confirmed Problem Gastroesophageal reflux disease without esophagitis (137164338) Gastroesophageal reflux disease without esophagitis (K21.9) Active confirmed Problem History of adenomatous polyp of colon (858973734) Hx of adenomatous colonic polyps (Z86.010) Active [...] Coverage Start Date Coverage End Date [facility] [address] [place] [phone] [id number] ABDOUL GARCIA Self - patient is the insured Medical (General) History Medical History History ICD Code GERD-upper endoscopy in mber of 2009 revealed a small hiatal hernia, but no evidence of any significant esophagitis nor Rivera's esophagus Colon polyps-tubular adenoma removed in 2009 NIDDM Hypertension Hyperlipidemia Factor V Leiden disease- he has never zelaya d a blood clot-on ASA 81mg Denies CO,CVA,Lung disease,renal disease Episode of gastroenteritis a nd transient irritable bowel type symptoms in the latter half of 2011 and beginning of 2012, with a negative workup including stool specimens, thyroid studies, and celiac disease laboratories Irregular heart beat-sees [facility] Cardi ology COVID 09/2020 Colonoscopy 09/2015 with small tubular ad enomas removed Surgical History Surgery Date(Month/Year) Hernia surgery--left inguinal Cervical spine disc surgery 1995 Benign chest mass Tonsillectomy Vasectomy Right shoulder surgery/elbow Back surgery L4,L5--at [facility] 06/25/1016 C-spine discs and Back surgery 2018
== END ==
LOC: HO.CARD 08:56
PROVIDERS: Visit Provider Nurse Practitioner Family
DX: I25.10 Atherosclerotic heart disease of native coronary artery without angina pectoris (principal); R06.02 Shortness of breath
CPT/HCPCS: 93308

== ENCOUNTER → 2025-07-11 08:58 | Outpatient (BNV) | payer MEDICARE, SELFPAY | PROVIDERS: Visit Provider Internal Medicine Cardiovascular Disease | DX: R06.02 Shortness of breath (principal); I51.9 Heart disease, unspecified | CPT/HCPCS: 93308; 93321 ==